=== PATIENT | male | born 1950 | race Caucasian/White ===

== ENCOUNTER 2016-05-31 09:19 | Outpatient (CLI) | payer OTHER | END 2016-05-31 09:20 | disposition home or self-care (01) | DX: C61 Malignant neoplasm of prostate (principal) ==

== ENCOUNTER 2016-08-02 16:32 | Outpatient (CLI) | payer OTHER | END 2016-08-02 16:33 | disposition home or self-care (01) | DX: Z01.810 Encounter for preprocedural cardiovascular examination (principal) ==

== ENCOUNTER 2016-08-04 06:56 | Day surgery (SDC) | payer OTHER ==
[2016-08-04] MEDS ORDERED: LACTATED RINGERS 1,000 ML IV ONE ×2 (06:59→10:37)
[2016-08-04] MEDS ORDERED: BUPIVACAINE 0.5% PF 30 ML VIAL SUBQ ONE (09:01)
[2016-08-04] MEDS ORDERED: LIDOCAINE 1%-EPI 1:100000 30 ML MDV SUBQ ONE ×2 (09:01)
[2016-08-04] MEDS ORDERED: ONDANSETRON 4 MG/2 ML VIAL IVP ONE (09:07)
[2016-08-04] MEDS ORDERED: METOCLOPRAMIDE 10 MG/2 ML VIAL IVP ONE (09:07)
[2016-08-04] MEDS ORDERED: ePHEDrine 50 MG/ML VIAL IVP ONE (09:07)
[2016-08-04] MEDS ORDERED: ceFAZolin 1 GM VIAL IV ONE (09:07)
[2016-08-04] MEDS ORDERED: PROPOFOL 200 MG/20 ML VIAL IVP ONE (09:07)
[2016-08-04] MEDS ORDERED: LIDOCAINE-MPF 2% 5 ML VIAL IM ONE (09:07)
[2016-08-04] MEDS ORDERED: MIDAZOLAM 2 MG/2 ML VIAL IVP ONE (09:07)
[2016-08-04] MEDS ORDERED: ACETAMINOPHEN 1,000 MG/100 ML VIAL IV ONE (09:07)
[2016-08-04] MEDS ORDERED: KETOROLAC 15 MG/ML VIAL ONE (11:15)
== END 2016-08-04 06:57 | disposition home or self-care (01) ==
PROC: 0YU60JZ Supplement Left Inguinal Region with Synthetic Substitute, Open Approach (ICD-10-PCS; principal; 2016-08-04 08:00)
DX: K40.90 Unilateral inguinal hernia, without obstruction or gangrene, not specified as recurrent (principal); E03.9 Hypothyroidism, unspecified; E78.5 Hyperlipidemia, unspecified; I10 Essential (primary) hypertension; E66.9 Obesity, unspecified; Z87.891 Personal history of nicotine dependence; Z80.42 Family history of malignant neoplasm of prostate; Z80.8 Family history of malignant neoplasm of other organs or systems; Z85.46 Personal history of malignant neoplasm of prostate; Z80.9 Family history of malignant neoplasm, unspecified; Z80.6 Family history of leukemia; G47.33 Obstructive sleep apnea (adult) (pediatric); Z68.32 Body mass index [BMI] 32.0-32.9, adult
CPT/HCPCS: 49505; C1781; J0131; J7120

== ENCOUNTER 2016-11-09 09:13 | Outpatient (CLI) | payer OTHER ==
[2016-11-09 11:24] LABS: BASOPHILS % (AUTO) 0.6 %; EOSINOPHILS # (AUTO) 0.3 10^3/uL (0.0-0.7); EOSINOPHILS % (AUTO) 4.9 %; HCT - HEMATOCRIT 40.1 % (42.0-52.0); HGB - HEMOGLOBIN 13.9 g/dL (14.0-18.0); MEAN CORPUSCULAR HEMOGLOBIN 30.4 pg (27.0-31.0); MEAN CORPUSCULAR HGB CONC 34.6 g/dL (32.0-36.0); MEAN CORPUSCULAR VOLUME 87.8 fL (80.0-94.0); MEAN PLATELET VOLUME 7.7 fL (7.4-11.4); MONOCYTES # (AUTO) 0.4 10^3/uL (0.0-1.0); MONOCYTES % (AUTO) 6.3 %; NEUTROPHILS # (AUTO) 4.3 10^3/uL (1.5-6.6); NEUTROPHILS % (AUTO) 60.2 %; RED BLOOD COUNT 4.57 10^6/uL (4.70-6.10); RED CELL DISTRIBUTION WIDTH 12.9 % (12.0-15.0); UNCORRECTED WHITE BLOOD COUNT 7.1 x10^3/uL; WHITE BLOOD COUNT 7.1 x10^3/uL (4.8-10.8)
[2016-11-09 11:41] LABS: ALBUMIN/GLOBULIN RATIO 1.5 (1.0-2.2); BILIRUBIN,TOTAL 0.6 mg/dL (0.2-1.0); BUN - BLOOD UREA NITROGEN 16 mg/dL (6-20); CALCIUM 9.8 mg/dL (8.5-10.3); CARBON DIOXIDE - CO2 26 mmol/L (21-32); CHLORIDE 107 mmol/L (101-111); CHOLESTEROL 125 mg/dL; CREATININE 1.4 mg/dL (0.6-1.2); GFR - MDRD 51 (>89); GLUCOSE 107 mg/dL (70-100); HDL CHOLESTEROL 25 mg/dL; LDL/HDL RATIO 1.8 (<3.6); POTASSIUM 3.4 mmol/L (3.5-5.0); SODIUM 140 mmol/L (135-145); TOTAL PROTEIN 6.8 g/dL (6.7-8.2); TRIGLYCERIDES 278 mg/dL; VLDL CHOLESTEROL 56 mg/dL
[2016-11-16 09:32] LABS: TEST RESULT REPORT (())
== END 2016-11-09 09:14 | disposition home or self-care (01) ==
LOC: LAB.R 09:13
PROVIDERS: ATTEND Internal Medicine
DX: I10 Essential (primary) hypertension (principal); E03.9 Hypothyroidism, unspecified; E78.2 Mixed hyperlipidemia; Z86.19 Personal history of other infectious and parasitic diseases; Z79.899 Other long term (current) drug therapy
CPT/HCPCS: 80053; 80061; 81599; 84443; 85025; 87522

== ENCOUNTER 2017-02-02 15:49 | Emergency (ER) | payer OTHER ==
[2017-02-02 16:22] LABS: BILIRUBIN,URINE NEGATIVE (NEGATIVE)
[2017-02-02 16:23] LABS: UA CHARGE (STRIP ONLY) YES; UR CULTURE IF IND NOT INDICATED
[2017-02-02] MEDS ORDERED: SODIUM CHLORIDE 0.9% 1,000 ML IV ONE (18:31)
[2017-02-02] MEDS ORDERED: ONDANSETRON 4 MG/2 ML VIAL IVP STA (18:31)
[2017-02-02] MEDS ORDERED: MORPHINE 10 MG/ML VIAL IVP STA (18:31)
--- NOTE | 2017-02-02 18:33 | ED Physician Documentation ---
PD HPI ABD PAIN - Stated complaint Stated Complaint: MALE - Chief complaint Chief Complaint: Abd Pain - History obtained from History obtained from: Patient - History of Present Illness Timing - onset: Other (This is a 66-year-old gentleman with history of renal colic, never required intervention with 24 hours of increasing pain radiating from the right flank down to the right lower quadrant with one episode of vomiting. No hematuria.) Review of Systems Ten Systems: 10 systems reviewed and negative Constitutional: denies: Fever, Chills GI: denies: Constipation, Diarrhea : denies: Dysuria, Incontinent, Hematuria, Discharge PD PAST MEDICAL HISTORY - Past Medical History Past Medical History: Yes Cardiovascular: Hypertension Respiratory: Sleep apnea, CPAP use Endocrine/Autoimmune: HyPOthyroidism GI: GERD, Hiatal hernia, Hepatitis : Benign prostate hypertrophy, Kidney stones, Other HEENT: Chronic hearing loss Psych: None Musculoskeletal: Osteoarthritis, Chronic back pain Derm: None - Past Surgical History Past Surgical History: Yes General: Colonoscopy HEENT: Tonsil/Adenoidectomy - Present Medications Home Medications: Ambulatory Orders Medication Instructions Recorded Confirmed Atorvastatin Calcium [Lipitor] 10 mg ORAL DAILY 12/20/12 02/02/17 Levothyroxine Sodium [Synthroid] 88 mcg ORAL DAILY 12/20/12 02/02/17 Eplerenone 25 mg PO DAILY 11/29/15 02/02/17 Labetalol [Trandate] 200 mg ORAL BID 11/29/15 02/02/17 Tamsulosin [Flomax] 0.4 mg PO DAILY 12/07/15 02/02/17 Calcium Carbonate [Tums (Calcium 1 - 2 tab.chew PO DAILY 08/02/16 02/02/17 Carbonate 500mg)] Oxycodone HCl/Acetaminophen 1 - 2 tab PO Q4H PRN #15 tablet 02/02/17 [Percocet 5-325 mg Tablet] - Allergies Allergies/Adverse Reactions: Allergies Allergy/AdvReac Type Severity Reaction Status Date / Time No Known Drug Allergies Allergy Verified 12/20/12 11:52 - Social History Does the pt smoke?: Yes Smoking Status: Former smoker Does the pt drink ETOH?: Yes Does the pt have substance abuse?: No - Immunizations Immunizations are current?: Yes - POLST Patient has POLST: No PD ED PE NORMAL - Vitals Vital signs reviewed: Yes - General General: Alert and oriented X 3, Other (uncomfortable) - HEENT HEENT: PERRL, EOMI - Cardiac Cardiac: RRR, No murmur - Respiratory Respiratory: No respiratory distress, Clear bilaterally - Abdomen Abdomen: Normal bowel sounds, Soft, Non tender - Back Back: No CVA TTP - Derm Derm: Normal color, Warm and dry - Extremities Extremities: No deformity, No tenderness to palpate - Neuro Neuro: Alert and oriented X 3, Normal speech - Psych Psych: Normal mood, Normal affect Results - Vitals Vitals: Vital Signs - 24 hr 02/02/17 02/02/17 02/02/17 16:09 19:05 19:59 Temperature 36.5 C 36.5 C Heart Rate 56 L 61 76 Respiratory 18 14 16 Rate Blood Pressure 185/95 H 215/97 H 193/91 H O2 Saturation 100 99 97 Oxygen O2 Source Room air - Labs Labs: Laboratory Tests 02/02/17 02/02/17 02/02/17 16:00 18:43 18:43 WBC 15.9 H RBC 4.97 Hgb 15.1 Hct 43.2 MCV 87.0 MCH 30.5 MCHC 35.0 RDW 13.1 Plt Count 178 MPV 7.4 Neut # 14.0 H Lymph # 1.2 L [place] # 0.6 Eos # 0.0 Baso # 0.1 Absolute Nucleated RBC 0.01 Nucleated RBCs 0.0 Sodium 137 Potassium 3.9 Chloride 99 L Carbon Dioxide 28 Anion Gap 10.0 BUN 15 Creatinine 1.6 H Estimated GFR (MDRD) 44 L Glucose 147 H Calcium 10.5 H Total Bilirubin 1.2 H AST 46 H ALT 49 Alkaline Phosphatase 57 Total Protein 7.9 Albumin 4.7 Globulin 3.2 Albumin/Globulin Ratio 1.5 Lipase 22 Urine Color YELLOW Urine Clarity CLEAR Urine pH 8.0 H Ur Specific [place] 1.015 Urine Protein NEGATIVE Urine Glucose (UA) NEGATIVE Urine Ketones NEGATIVE Urine Occult Blood TRACE-INTA Urine Nitrite NEGATIVE Urine Bilirubin NEGATIVE Urine Urobilinogen 0.2 (NORMAL) Ur Leukocyte Esterase NEGATIVE Ur Microscopic Review NOT INDICATED Urine Culture Comments NOT INDICATED - Rads (name of study) CT KUB Radiology: EMP read contemporaneously (Obstructing 3.8 mm distal right ureteral stone, nonobstructing left renal stone and renal calculi without evidence of Appendicitis, diverticulitis etc.) PD MEDICAL DECISION MAKING - ED course ED course: 66-year-old gentleman presents with apparent renal colic, however there is no hematuria so CT imaging was obtained. He does have a right UVJ stone with hydronephrosis but was pain-free after single dose of morphine. Labs reviewed, his creatinine is usually 1.4-1.5, so today's value is not significantly increased, and he has had elevated liver enzymes in the past from a history of hepatitis C. Departure - Departure Disposition: 01 Home, Self Care Clinical Impression: Renal colic Condition: Good Record reviewed to determine appropriate education?: Yes Instructions: ED Stone Renal W Colic Prescriptions: Oxycodone HCl/Acetaminophen [Percocet 5-325 mg Tablet] 1 - 2 tab PO Q4H PRN #15 tablet PRN Reason: Pain Comments: Follow-up with Dr. bernardo on Sunday to recheck your blood pressure which was high today, and also discuss her abnormal labs, but most of these seem chronic. He can also refer you to a urologist if your symptoms are persistent. Continue your Flomax. Your blood pressure was elevated today on check into the emergency department. This does not mean that you have hypertension, it is a common phenomenon to come to the emergency department and have elevated blood pressure. I recommend that she see your primary care physician within the week to have it rechecked when you are feeling better. Do not drink or drive while taking narcotic pain medication. Note that many narcotic pain relievers also contain Tylenol/acetaminophen. Please ensure that your total dose of acetaminophen from all sources does not exceed 3 g (3000 mg) per day. You may get constipated while on this medication. Take a stool softener such as Colace twice a day while you are on it. Also add an vlbq-hcq-lrjceey laxative such as senna or MiraLAX on any day that you do not have a bowel movement. If you received a narcotic pain medication or sedative while in the emergency department, do not drive for the next 24 hours. Discharge Date/Time: 02/02/17 20:15
[2017-02-02 19:01] LABS: BASOPHILS # (AUTO) 0.1 10^3/uL (0.0-0.1); BASOPHILS % (AUTO) 0.5 %; EOSINOPHILS % (AUTO) 0.1 %; HCT - HEMATOCRIT 43.2 % (42.0-52.0); HGB - HEMOGLOBIN 15.1 g/dL (14.0-18.0); LYMPHOCYTES # (AUTO) 1.2 10^3/uL (1.5-3.5); LYMPHOCYTES % (AUTO) 7.5 %; MEAN CORPUSCULAR HEMOGLOBIN 30.5 pg (27.0-31.0); MEAN PLATELET VOLUME 7.4 fL (7.4-11.4); MONOCYTES # (AUTO) 0.6 10^3/uL (0.0-1.0); MONOCYTES % (AUTO) 3.8 %; NEUTROPHILS % (AUTO) 88.1 %; RED BLOOD COUNT 4.97 10^6/uL (4.70-6.10); RED CELL DISTRIBUTION WIDTH 13.1 % (12.0-15.0); UNCORRECTED WHITE BLOOD COUNT 15.9 x10^3/uL; WHITE BLOOD COUNT 15.9 x10^3/uL (4.8-10.8)
[2017-02-02] MEDS ORDERED: MORPHINE 10 MG/ML VIAL ONE (19:01)
[2017-02-02] MEDS ORDERED: ONDANSETRON 4 MG/2 ML VIAL ONE (19:01)
[2017-02-02 19:02] LABS: ALBUMIN/GLOBULIN RATIO 1.5 (1.0-2.2); BILIRUBIN,TOTAL 1.2 mg/dL (0.2-1.0); CALCIUM 10.5 mg/dL (8.5-10.3); CREATININE 1.6 mg/dL (0.6-1.2); POTASSIUM 3.9 mmol/L (3.5-5.0); TOTAL PROTEIN 7.9 g/dL (6.7-8.2)
[2017-02-02 20:00] VITALS: BP 193/91
--- NOTE | 2017-02-02 20:23 | CT Preliminary Report ---
Exam: CT Abdomen/Pelvis W/O IMPRESSION: 1. Obstructing 3.8 mm distal right ureteral stone results in moderate right hydroureter, hydronephros is and perinephric stranding. 2. 3 mm nonobstructing mid left renal stone. 3. Bilateral nonobstructing renal calculi. 4. Normal appendix. Diverticulosis. No inflammation. [facility] SITE ID: [id number]
--- NOTE | 2017-02-02 20:38 | CT Report ---
EXAM: CT ABDOMEN AND PELVIS (CT KUB) EXAM DATE: 02/02/2017 07:35 PM. CLINICAL HISTORY: Right flank pain. COMPARISONS: None. TECHNIQUE: Routine axial helical CT imaging was performed through the abdomen and pelvis without IV c ontrast. Reconstructions: Coronal and sagittal. In accordance with CT protocol optimization, one or more of the following dose reduction techniques w ere utilized for this exam: automated exposure control, adjustment of mA and/or KV based on patient s ize, or use of iterative reconstructive technique. FINDINGS: Lung Bases: Mild cardiac enlargement. Small hiatal hernia. Coronary artery calcifications are noted. No pleural or pericardial effusion is noted. Right Kidney/Ureter: 3.8 mm distal right ureteral stone results in moderate hydroureter and hydroneph rosis. Moderate perinephric fat stranding. No contour deforming renal mass noted. Multiple nonobstru cting right-sided renal stones with the largest measuring 7 mm in the right upper kidney. Left Kidney/Ureter: Multiple small punctate nonobstructing inferior left renal stones. No left renal mass or hydronephrosis is noted. There is a 3 mm nonobstructing mid left renal stone on image 3,91. Other Solid Organs: Noncontrast images of the solid organs are grossly unremarkable. Gallbladder/Bile Ducts: Unremarkable. Peritoneal Cavity: No free fluid, free air or lisa adenopathy. Bowel is grossly unremarkable. Scatte red sigmoid diverticula are noted without inflammation. Normal appendix. Pelvic Organs: Prostate gland is mildly enlarged and contains multiple radiation therapy beads. Semin al vesicles are moderately enlarged. No bladder stones or bladder thickening or mass. No pelvic mass or adenopathy is noted. Vasculature: Mild patchy atheromatous plaques are present throughout the abdominal aorta. No aneurysm al dilation is noted. IVC is normal. Other: Fat-containing left inguinal hernia noted. No incarcerated bowel. IMPRESSION: 1. Obstructing 3.8 mm distal right ureteral stone results in moderate right hydroureter, hydronephros is, and perinephric stranding. 2. 3 mm nonobstructing mid left renal stone. 3. Bilateral nonobstructing renal calculi. 4. Normal appendix. Diverticulosis. No inflammation. [facility] Referring Provider Line: [phone] SITE ID: [id number]
== END 2017-02-02 20:15 | disposition home or self-care (01) ==
LOC: ED 15:49
DX: N13.2 Hydronephrosis with renal and ureteral calculous obstruction (principal); I10 Essential (primary) hypertension; Z87.891 Personal history of nicotine dependence
CPT/HCPCS: 36415; 74176; 80053; 81001; 81003; 83690; 85025; 87086; 96374; 96375; 99283; 99284

== ENCOUNTER 2017-02-04 18:38 | Emergency (ER) | payer OTHER ==
--- NOTE | 2017-02-04 19:17 | ED Physician Documentation ---
PD HPI ABD PAIN - Stated complaint Stated Complaint: STOMACH PX - Chief complaint Chief Complaint: Abd Pain - History obtained from History obtained from: Patient, Family - History of Present Illness Timing - onset: Other (66-year-old gentleman with history of renal colic and hepatitis C and renal insufficiency was seen by me 2 days ago for renal colic on the right. He has persistent pain, but now also has rectal pain and new abdominal pain and has not had a bowel movement since prior to that visit. This is despite taking stool softeners and magnesium citrate.) Review of Systems Constitutional: denies: Fever, Chills Cardiac: denies: Chest pain / pressure, Palpitations Respiratory: denies: Dyspnea, Cough GI: reports: Abdominal Pain, Constipation. denies: Diarrhea, Hematemesis, Bloody / black stool PD PAST MEDICAL HISTORY - Past Medical History Cardiovascular: Hypertension Respiratory: Sleep apnea, CPAP use Endocrine/Autoimmune: HyPOthyroidism GI: GERD, Hiatal hernia, Hepatitis : Benign prostate hypertrophy, Kidney stones, Other HEENT: Chronic hearing loss Psych: None Musculoskeletal: Osteoarthritis, Chronic back pain Derm: None - Past Surgical History Past Surgical History: Yes General: Colonoscopy HEENT: Tonsil/Adenoidectomy - Present Medications Home Medications: Ambulatory Orders Medication Instructions Recorded Confirmed Atorvastatin Calcium [Lipitor] 10 mg ORAL DAILY 12/20/12 02/04/17 Levothyroxine Sodium [Synthroid] 88 mcg ORAL DAILY 12/20/12 02/04/17 Eplerenone 25 mg PO DAILY 11/29/15 02/04/17 Labetalol [Trandate] 200 mg ORAL BID 11/29/15 02/04/17 Tamsulosin [Flomax] 0.4 mg PO DAILY 12/07/15 02/04/17 Calcium Carbonate [Tums (Calcium 1 - 2 tab.chew PO DAILY 08/02/16 02/04/17 Carbonate 500mg)] Oxycodone HCl/Acetaminophen 1 - 2 tab PO Q4H PRN #15 tablet 02/02/17 02/04/17 [Percocet 5-325 mg Tablet] - Allergies Allergies/Adverse Reactions: Allergies Allergy/AdvReac Type Severity Reaction Status Date / Time No Known Drug Allergies Allergy Verified 02/04/17 18:48 - Social History Does the pt smoke?: Yes Smoking Status: Former smoker Does the pt drink ETOH?: Yes Does the pt have substance abuse?: No - Immunizations Immunizations are current?: Yes - POLST Patient has POLST: No PD ED PE NORMAL - Vitals Vital signs reviewed: Yes - General General: Alert and oriented X 3, Other (Uncomfortable) - HEENT HEENT: PERRL, EOMI - Neck Neck: Supple, no meningeal sign, No bony TTP - Cardiac Cardiac: RRR, No murmur - Respiratory Respiratory: No respiratory distress, Clear bilaterally - Abdomen Abdomen: Other (Normal bowel tones, mild right-sided abdominal tenderness. No surgical signs.) - Male Male : Other (No fecal impaction or significant stool in the vault) - Back Back: No CVA TTP, No spinal TTP - Derm Derm: Normal color, Warm and dry - Extremities Extremities: No deformity, No tenderness to palpate, No edema, No calf tenderness / cord - Neuro Neuro: Alert and oriented X 3, Normal speech - Psych Psych: Normal mood, Normal affect Results - Vitals Vitals: Vital Signs - 24 hr 02/04/17 18:45 Temperature 37.3 C Heart Rate 85 Respiratory 16 Rate Blood Pressure 142/92 H O2 Saturation 97 Oxygen O2 Source Room air - Labs Labs: Laboratory Tests 02/04/17 02/04/17 02/04/17 19:40 19:40 21:20 WBC 16.7 H RBC 4.85 Hgb 14.7 Hct 42.2 MCV 86.9 MCH 30.3 MCHC 34.9 RDW 13.1 Plt Count 177 MPV 7.8 Neut # 14.8 H Lymph # 0.8 L [place] # 1.1 H Eos # 0.0 Baso # 0.0 Absolute Nucleated RBC 0.00 Nucleated RBCs 0.0 Sodium 136 Potassium 3.9 Chloride 98 L Carbon Dioxide 31 Anion Gap 7.0 BUN 23 H Creatinine 1.6 H Estimated GFR (MDRD) 44 L Glucose 154 H Calcium 10.6 H Total Bilirubin 1.2 H AST 24 ALT 33 Alkaline Phosphatase 47 Total Protein 7.3 Albumin 4.1 Globulin 3.2 Albumin/Globulin Ratio 1.3 Lipase 14 L Urine Color YELLOW Urine Clarity CLEAR Urine pH 6.0 Ur Specific [place] 1.015 Urine Protein NEGATIVE Urine Glucose (UA) NEGATIVE Urine Ketones NEGATIVE Urine Occult Blood LARGE H Urine Nitrite NEGATIVE Urine Bilirubin NEGATIVE Urine Urobilinogen 0.2 (NORMAL) Ur Leukocyte Esterase NEGATIVE Urine RBC 11-25 H Urine WBC 0-3 Ur Squamous Epith Cells RARE Squamous Urine Bacteria Rare Ur Microscopic Review INDICATED Urine Culture Comments NOT INDICATED - Rads (name of study) 1v abd/KUB Radiology: EMP read contemporaneously (Redemonstration of 4 mm right distal ureteral calculus and there is a 5 mm right infrarenal calculus.) PD MEDICAL DECISION MAKING - ED course ED course: 66-year-old gentleman with known renal colic on the right presents with constipation and continued abdominal pain. On examination he had no fecal impaction. A KUB was done demonstrating no movement of the kidney stone, and I do not see much constipation on there either. He was given laxatives here and had a good bowel movement without significant change in his pain, so I suspect the bulk of his pain is actually from the kidney stone itself. He has a urologist, Dr. Macias in [place], I advised that he follow-up with him tomorrow. He was given a copy of his CAT scan from the other day on a CD to aid in follow-up. Departure - Departure Disposition: 01 Home, Self Care Clinical Impression: Renal colic Condition: Good Record reviewed to determine appropriate education?: Yes Instructions: ED Stone Renal W Colic Comments: Continue on the Percocet for now, but take laxatives every day if not having a bowel movement. Return if worse. Follow-up with Dr. Macias with a copy of your CAT scan on CD tomorrow. Your blood pressure was elevated today on check into the emergency department. This does not mean that you have hypertension, it is a common phenomenon to come to the emergency department and have elevated blood pressure. I recommend that she see your primary care physician within the week to have it rechecked when you are feeling better.
[2017-02-04] MEDS ORDERED: SODIUM CHLORIDE FLUSH 0.9% 10 ML SYRINGE IVP ONE (19:38)
[2017-02-04] MEDS ORDERED: SODIUM CHLORIDE 0.9% 1,000 ML IV ONE ×2 (20:09→21:36)
[2017-02-04] MEDS ORDERED: BISACODYL 5 MG TABLET PO STA (20:09)
[2017-02-04] MEDS ORDERED: MAGNESIUM CITRATE 296 ML BOTTLE PO STA (20:09)
[2017-02-04] MEDS ORDERED: LORazepam 2 MG/ML SYRINGE IVP STA (20:09)
[2017-02-04 20:15] LABS: BASOPHILS % (AUTO) 0.1 %; EOSINOPHILS % (AUTO) 0.1 %; HCT - HEMATOCRIT 42.2 % (42.0-52.0); HGB - HEMOGLOBIN 14.7 g/dL (14.0-18.0); LYMPHOCYTES # (AUTO) 0.8 10^3/uL (1.5-3.5); LYMPHOCYTES % (AUTO) 4.8 %; MEAN CORPUSCULAR HEMOGLOBIN 30.3 pg (27.0-31.0); MEAN CORPUSCULAR HGB CONC 34.9 g/dL (32.0-36.0); MEAN CORPUSCULAR VOLUME 86.9 fL (80.0-94.0); MEAN PLATELET VOLUME 7.8 fL (7.4-11.4); MONOCYTES # (AUTO) 1.1 10^3/uL (0.0-1.0); MONOCYTES % (AUTO) 6.6 %; NEUTROPHILS # (AUTO) 14.8 10^3/uL (1.5-6.6); NEUTROPHILS % (AUTO) 88.4 %; RED BLOOD COUNT 4.85 10^6/uL (4.70-6.10); RED CELL DISTRIBUTION WIDTH 13.1 % (12.0-15.0); UNCORRECTED WHITE BLOOD COUNT 16.7 x10^3/uL; WHITE BLOOD COUNT 16.7 x10^3/uL (4.8-10.8)
[2017-02-04] MEDS ORDERED: BISACODYL 5 MG TABLET PO ONE (20:18)
[2017-02-04] MEDS ORDERED: LORazepam 2 MG/ML SYRINGE ONE (20:19)
[2017-02-04] MEDS ORDERED: MAGNESIUM CITRATE 296 ML BOTTLE ONE (20:19)
[2017-02-04 20:32] LABS: ALBUMIN/GLOBULIN RATIO 1.3 (1.0-2.2); BILIRUBIN,TOTAL 1.2 mg/dL (0.2-1.0); CALCIUM 10.6 mg/dL (8.5-10.3); CREATININE 1.6 mg/dL (0.6-1.2); POTASSIUM 3.9 mmol/L (3.5-5.0); TOTAL PROTEIN 7.3 g/dL (6.7-8.2)
--- NOTE | 2017-02-04 21:06 | XRAY Preliminary Report ---
Exam: XR Abdomen 1 View IMPRESSION: 1. Redemonstration of 4 mm right distal ureteral calculus. 2. 5 mm right intrarenal calculus. Other tiny intrarenal calculi demonstrated on CT are not well seen . [facility] SITE ID: [id number]
--- NOTE | 2017-02-04 21:08 | XRAY Report ---
EXAM: ABDOMEN RADIOGRAPHY EXAM DATE: 02/04/2017 08:39 PM. CLINICAL HISTORY: Constipation. Kidney stone. COMPARISON: CT KUB 02/02/2017. TECHNIQUE: 1 view. FINDINGS: Lung Bases: Clear as visualized. Bowel Gas Pattern: Within normal limits. No abnormal stool volume or dilated loops. Other: Redemonstration of 4 mm right distal ureteral calculus, and 5 mm intrarenal calculus in the mi dportion of the right kidney. Brachytherapy seeds within the prostate gland. IMPRESSION: 1. Redemonstration of 4 mm right distal ureteral calculus. 2. 5 mm right intrarenal calculus. Other tiny intrarenal calculi demonstrated on CT are not well seen . [facility] Referring Provider Line: [phone] SITE ID: [id number]
[2017-02-04] MEDS ORDERED: KETOROLAC 60 MG/2 ML VIAL IVP STA (21:13)
[2017-02-04] MEDS ORDERED: KETOROLAC 30 MG/ML VIAL ONE (21:30)
[2017-02-04 21:39] LABS: BILIRUBIN,URINE NEGATIVE (NEGATIVE)
[2017-02-04 21:41] LABS: UA w/ MICROSCOPIC CHARGE YES
[2017-02-04 21:47] LABS: UR CULTURE IF IND NOT INDICATED; WBC,URINE 0-3 /HPF (0-3)
[2017-02-04 22:12] VITALS: BP 159/96
== END 2017-02-04 22:21 | disposition home or self-care (01) ==
LOC: ED 18:38
DX: N20.2 Calculus of kidney with calculus of ureter (principal); Z87.442 Personal history of urinary calculi; K59.00 Constipation, unspecified; Z86.19 Personal history of other infectious and parasitic diseases; I10 Essential (primary) hypertension; G47.30 Sleep apnea, unspecified; E03.9 Hypothyroidism, unspecified; N40.0 Benign prostatic hyperplasia without lower urinary tract symptoms; K21.9 Gastro-esophageal reflux disease without esophagitis; M19.90 Unspecified osteoarthritis, unspecified site; Z87.891 Personal history of nicotine dependence
CPT/HCPCS: 36415; 74000; 80053; 81001; 83690; 85025; 96374; 96375; 99283; 99284; A9270; J2060; 81003; 87086

== ENCOUNTER 2017-03-05 08:00 | Outpatient (CLI) | payer OTHER ==
[2017-03-07 16:32] LABS: TEST RESULT REPORT
== END 2017-03-05 08:01 | disposition home or self-care (01) ==
LOC: LAB.R 08:00
PROVIDERS: ATTEND Internal Medicine
DX: N48.9 Disorder of penis, unspecified (principal)
CPT/HCPCS: 81599; 86592; 86695; 86696

== ENCOUNTER 2017-05-01 14:49 | Outpatient (CLI) | payer OTHER ==
--- NOTE | 2017-05-01 19:51 | MRI Report ---
EXAM: LEFT KNEE MRI WITHOUT CONTRAST EXAM DATE: 05/01/2017 03:27 PM. CLINICAL HISTORY: Internal derangement of the left knee. Popping and clicking for one and a half selma hs. COMPARISON: None. TECHNIQUE: Multiplanar, multisequence T1-weighted and fluid-sensitive sequences of the knee without c ontrast. Other: None. FINDINGS: Bones: Marrow edema is in the medial femoral condyle in the periphery of the medial tibial plateau. N o fractures. Articular Cartilage: The central patellar cartilage demonstrates mild surface fissuring. The trochlea r cartilage is intact. Lateral compartment articular cartilage is intact. There is a focal area of fu ll-thickness cartilage loss from the inferior medial femoral condyle that measures 1.6 x 1.6 cm. Medial Meniscus: The posterior root of the medial meniscus demonstrates a high-grade radial tear (ser ies 601, images 18 through 22; series 801, image 23). Lateral Meniscus: The lateral meniscus is intact. Cruciate Ligaments: The anterior and posterior cruciate ligaments are intact. Collateral Ligaments: The medial collateral and lateral collateral ligamentous structures are intact. Tendons: The quadriceps, patellar, semimembranosus, and popliteus tendons are unremarkable. Musculature: No edema or fatty atrophy. Other: A moderate knee effusion is present.. No popliteal cyst. No loose bodies. The medial and late ral retinacula are intact. Prepatellar subcutaneous edema is seen. IMPRESSION: 1. Focal area of full-thickness cartilage loss from the inferior medial femoral condyle. 2. High-grade radial tear of the posterior root of the medial meniscus. 3. Moderate knee effusion. [facility] MUSCULOSKELETAL RADIOLOGY SECTION Referring Provider Line: [phone] SITE ID: [id number]
== END 2017-05-01 14:50 | disposition home or self-care (01) ==
LOC: DI 14:49
PROVIDERS: ATTEND Internal Medicine
DX: M23.92 Unspecified internal derangement of left knee (principal); S83.242A Other tear of medial meniscus, current injury, left knee, initial encounter; M25.462 Effusion, left knee

== ENCOUNTER 2017-10-24 08:00 | Outpatient (CLI) | payer OTHER ==
[2017-10-24 14:12] LABS: BASOPHILS # (AUTO) 0.1 10^3/uL (0.0-0.1); BASOPHILS % (AUTO) 0.7 %; EOSINOPHILS # (AUTO) 0.2 10^3/uL (0.0-0.7); EOSINOPHILS % (AUTO) 3.2 %; HGB - HEMOGLOBIN 15.2 g/dL (14.0-18.0); LYMPHOCYTES # (AUTO) 2.3 10^3/uL (1.5-3.5); LYMPHOCYTES % (AUTO) 32.8 %; MEAN CORPUSCULAR HEMOGLOBIN 30.3 pg (27.0-31.0); MEAN CORPUSCULAR VOLUME 89.1 fL (80.0-94.0); MEAN PLATELET VOLUME 8.1 fL (7.4-11.4); MONOCYTES # (AUTO) 0.4 10^3/uL (0.0-1.0); MONOCYTES % (AUTO) 6.3 %; PLT - PLATELET COUNT 198 10^3/uL (130-450); RED BLOOD COUNT 5.02 10^6/uL (4.70-6.10); RED CELL DISTRIBUTION WIDTH 13.5 % (12.0-15.0)
[2017-10-24 14:34] LABS: ALBUMIN/GLOBULIN RATIO 1.3 (1.0-2.2); ALKALINE PHOSPHATASE 46 IU/L (42-121); ALT ALANINE AMINOTRANSFERASE 65 IU/L (10-60); AST ASPARTATE AMINOTRANSFERASE 39 IU/L (10-42); BILIRUBIN,TOTAL 0.9 mg/dL (0.2-1.0); BUN - BLOOD UREA NITROGEN 13 mg/dL (6-20); CALCIUM 9.7 mg/dL (8.5-10.3); CARBON DIOXIDE - CO2 27 mmol/L (21-32); CHLORIDE 105 mmol/L (101-111); CHOL/HDL RATIO 4.7 (<5.0); CHOLESTEROL 136 mg/dL; CREATININE 1.2 mg/dL (0.6-1.2); GFR - MDRD 61 (>89); GLUCOSE 111 mg/dL (70-100); HDL CHOLESTEROL 29 mg/dL; LDL CHOLESTEROL,CALCULATED 71 mg/dL; LDL/HDL RATIO 2.4 (<3.6); SODIUM 137 mmol/L (135-145); TOTAL PROTEIN 7.1 g/dL (6.7-8.2); VLDL CHOLESTEROL 36 mg/dL
== END 2017-10-24 08:01 | disposition home or self-care (01) ==
LOC: LAB.R 08:00
PROVIDERS: ATTEND Internal Medicine
DX: E03.9 Hypothyroidism, unspecified (principal); K21.9 Gastro-esophageal reflux disease without esophagitis; I10 Essential (primary) hypertension; E78.5 Hyperlipidemia, unspecified
CPT/HCPCS: 80053; 80061; 83721; 84443; 85025

== ENCOUNTER 2017-12-04 08:00 | Outpatient (CLI) | payer OTHER ==
[2017-12-04 14:14] LABS: HEMOGLOBIN A1C 0.63 g/dL; HEMOGLOBIN A1C % 5.5 % (4.6-6.2)
== END 2017-12-04 08:01 | disposition home or self-care (01) ==
LOC: LAB.R 08:00
PROVIDERS: ATTEND Internal Medicine
DX: R73.9 Hyperglycemia, unspecified (principal)
CPT/HCPCS: 82947; 83036

== ENCOUNTER 2017-12-15 10:44 | Outpatient (CLI) | payer MEDICARE | END 2017-12-15 10:45 | disposition home or self-care (01) | LOC: LAB 10:44 | PROVIDERS: ATTEND Urology | DX: Z85.46 Personal history of malignant neoplasm of prostate (principal) | CPT/HCPCS: 36415; 84153 ==

== ENCOUNTER 2018-11-19 11:20 | Outpatient (CLI) | payer MEDICARE ==
--- NOTE | 2018-11-19 14:16 | XRAY Report ---
Reason: RENAL CALCULUS Procedure Date: 11/19/2018 Accession Number: [id number] / [id number] Procedure: XR - Abdomen 1 View X-Ray CPT Code: 81818 FULL RESULT: EXAM: ABDOMEN RADIOGRAPHY EXAM DATE: 11/19/2018 11:55 AM. CLINICAL HISTORY: Renal calculus. COMPARISON: ABDOMEN 1 VIEW 02/04/2017 8:10 PM. TECHNIQUE: 1 view. FINDINGS: Bowel Gas Pattern: Within normal limits. No dilated loops. Other: A sub-3 mm calcific density seen in the region of the expected right renal lower pole. Previously seen calcific density projecting over the right renal mid pole is not seen. Fiducial markers are seen in the prostate. IMPRESSION: Potential calculus in the lower pole region of the right kidney. [facility]
== END 2018-11-19 11:21 | disposition home or self-care (01) ==
LOC: DI 11:20
PROVIDERS: ATTEND Urology
DX: N20.0 Calculus of kidney (principal); Z85.46 Personal history of malignant neoplasm of prostate
CPT/HCPCS: 36415; 74018; 84153

== ENCOUNTER 2018-12-30 09:33 | Outpatient (CLI) | payer MEDICARE ==
[2018-12-30 09:48] LABS: BASOPHILS % (AUTO) 0.5 %; EOSINOPHILS # (AUTO) 0.2 10^3/uL (0.0-0.7); EOSINOPHILS % (AUTO) 2.8 %; HGB - HEMOGLOBIN 13.9 g/dL (14.0-18.0); LYMPHOCYTES % (AUTO) 31.3 %; MEAN CORPUSCULAR HEMOGLOBIN 29.1 pg (27.0-31.0); MEAN CORPUSCULAR HGB CONC 33.2 g/dL (32.0-36.0); MEAN CORPUSCULAR VOLUME 87.7 fL (80.0-94.0); MEAN PLATELET VOLUME 9.3 fL (7.4-11.4); MONOCYTES # (AUTO) 0.5 10^3/uL (0.0-1.0); MONOCYTES % (AUTO) 6.9 %; NEUTROPHILS # (AUTO) 3.8 10^3/uL (1.5-6.6); NEUTROPHILS % (AUTO) 57.9 %; PLT - PLATELET COUNT 182 10^3/uL (130-450); RED BLOOD COUNT 4.78 10^6/uL (4.70-6.10); RED CELL DISTRIBUTION WIDTH 12.7 % (12.0-15.0); WHITE BLOOD COUNT 6.5 x10^3/uL (4.8-10.8)
[2018-12-30 10:07] LABS: ALBUMIN 4.1 g/dL (3.2-5.5); ALBUMIN/GLOBULIN RATIO 1.4 (1.0-2.2); ALKALINE PHOSPHATASE 50 IU/L (42-121); ALT ALANINE AMINOTRANSFERASE 40 IU/L (10-60); AST ASPARTATE AMINOTRANSFERASE 29 IU/L (10-42); BUN - BLOOD UREA NITROGEN 14 mg/dL (6-20); CALCIUM 9.7 mg/dL (8.5-10.3); CARBON DIOXIDE - CO2 25 mmol/L (21-32); CHLORIDE 107 mmol/L (101-111); CHOL/HDL RATIO 5.7 (<5.0); CHOLESTEROL 153 mg/dL; CREATININE 1.2 mg/dL (0.6-1.2); GFR - MDRD 61 (>89); GLUCOSE 117 mg/dL (70-100); HDL CHOLESTEROL 27 mg/dL; LDL CHOLESTEROL,CALCULATED 89 mg/dL; LDL/HDL RATIO 3.3 (<3.6); SODIUM 142 mmol/L (135-145); TOTAL PROTEIN 7.1 g/dL (6.7-8.2); VLDL CHOLESTEROL 37 mg/dL
[2018-12-30 10:43] LABS: THYROID STIMULATING HORMONE 1.16 uIU/mL (0.34-5.60)
[2018-12-30 10:46] LABS: FREE T4 (FREE THYROXINE) 0.99 ng/dL (0.58-1.64)
== END 2018-12-30 09:34 | disposition home or self-care (01) ==
LOC: LAB 09:33
PROVIDERS: ATTEND Family Medicine
DX: E03.9 Hypothyroidism, unspecified (principal); E78.5 Hyperlipidemia, unspecified; I10 Essential (primary) hypertension; K21.9 Gastro-esophageal reflux disease without esophagitis; N20.0 Calculus of kidney; G47.33 Obstructive sleep apnea (adult) (pediatric)
CPT/HCPCS: 36415; 80053; 80061; 83721; 84439; 84443; 84481; 85025

== ENCOUNTER 2019-05-06 14:03 | Emergency (ER) | payer MEDICARE ==
[2019-05-06 14:41] LABS: BASOPHILS % (AUTO) 0.4 %; EOSINOPHILS # (AUTO) 0.1 10^3/uL (0.0-0.7); EOSINOPHILS % (AUTO) 1.9 %; HGB - HEMOGLOBIN 14.5 g/dL (14.0-18.0); LYMPHOCYTES # (AUTO) 2.4 10^3/uL (1.5-3.5); LYMPHOCYTES % (AUTO) 32.6 %; MEAN CORPUSCULAR HEMOGLOBIN 30.9 pg (27.0-31.0); MEAN CORPUSCULAR HGB CONC 34.5 g/dL (32.0-36.0); MEAN CORPUSCULAR VOLUME 89.4 fL (80.0-94.0); MEAN PLATELET VOLUME 9.6 fL (7.4-11.4); MONOCYTES # (AUTO) 0.5 10^3/uL (0.0-1.0); MONOCYTES % (AUTO) 6.4 %; NEUTROPHILS # (AUTO) 4.2 10^3/uL (1.5-6.6); NEUTROPHILS % (AUTO) 58.3 %; PLT - PLATELET COUNT 198 10^3/uL (130-450); RED CELL DISTRIBUTION WIDTH 12.2 % (12.0-15.0); WHITE BLOOD COUNT 7.2 x10^3/uL (4.8-10.8)
--- NOTE | 2019-05-06 14:41 | ED Physician Documentation ---
History of Present Illness - Stated complaint Stated Complaint: BP - PCP REFERRED - Chief complaint Chief Complaint: Cardiac - History obtained from History obtained from: Patient - History of Present Illness Timing: Other (For the last 3 weeks he has had some headaches and higher than normal blood pressures despite taking labetalol 200 mg twice daily and losartan 100 mg daily. No recent changes in his blood pressure medicines. No chest pain. Some very mild shortness of breath. No pedal edema.) Review of Systems Constitutional: denies: Fever, Chills, Fatigue Eyes: denies: Loss of vision, Decreased vision, Photophobia Cardiac: denies: Chest pain / pressure, Palpitations, Pedal edema, Calf pain PD PAST MEDICAL HISTORY - Past Medical History Cardiovascular: Hypertension Respiratory: Sleep apnea, CPAP use Endocrine/Autoimmune: HyPOthyroidism GI: GERD, Hiatal hernia, Hepatitis : Benign prostate hypertrophy, Kidney stones, Other HEENT: Chronic hearing loss Psych: None Musculoskeletal: Osteoarthritis, Chronic back pain Derm: None - Past Surgical History Past Surgical History: Yes General: Colonoscopy HEENT: Tonsil/Adenoidectomy - Present Medications Home Medications: Ambulatory Orders Medication Instructions Recorded Confirmed Atorvastatin Calcium [Lipitor] 10 mg ORAL DAILY 12/20/12 02/04/17 Levothyroxine Sodium [Synthroid] 88 mcg ORAL DAILY 12/20/12 02/04/17 Eplerenone 25 mg PO DAILY 11/29/15 02/04/17 Labetalol [Trandate] 200 mg ORAL BID 11/29/15 02/04/17 Tamsulosin [Flomax] 0.4 mg PO DAILY 12/07/15 02/04/17 Calcium Carbonate [Tums (Calcium 1 - 2 tab.chew PO DAILY 08/02/16 02/04/17 Carbonate 500mg)] Oxycodone HCl/Acetaminophen 1 - 2 tab PO Q4H PRN #15 tablet 02/02/17 02/04/17 [Percocet 5-325 mg Tablet] amLODIPine [Norvasc] 10 mg PO DAILY #30 tablet 05/06/19 - Allergies Allergies/Adverse Reactions: Allergies Allergy/AdvReac Type Severity Reaction Status Date / Time No Known Drug Allergies Allergy Verified 05/06/19 14:12 - Social History Does the pt smoke?: Yes Smoking Status: Former smoker Does the pt drink ETOH?: Yes Does the pt have substance abuse?: No - Immunizations Immunizations are current?: Yes - POLST Patient has POLST: No PD ED PE NORMAL - Vitals Vital signs reviewed: Yes - General General: Alert and oriented X 3, No acute distress - HEENT HEENT: PERRL, EOMI - Neck Neck: Supple, no meningeal sign, No bony TTP - Cardiac Cardiac: RRR, No murmur - Respiratory Respiratory: No respiratory distress, Clear bilaterally - Abdomen Abdomen: Non tender - Derm Derm: Normal color, Warm and dry - Extremities Extremities: No calf tenderness / cord - Neuro Neuro: Alert and oriented X 3, Normal speech Results - Vitals Vitals: Vital Signs - 24 hr 05/06/19 05/06/19 05/06/19 14:12 14:50 15:06 Temperature 36.5 C Heart Rate 57 L 59 L 56 L Respiratory 16 16 17 Rate Blood Pressure 161/89 H 161/92 H 146/80 H O2 Saturation 99 97 98 05/06/19 15:15 Temperature Heart Rate 60 Respiratory 14 Rate Blood Pressure 146/80 H O2 Saturation 98 Oxygen O2 Source Room air - EKG (time done) 1444 Rate: Rate (enter#) (54) Rhythm: NSR [place]: Normal Intervals: Normal ME QRS: Normal Ischemia: Normal ST segments, Non specific changes Computer interpretation: Agree with computer - Labs Labs: Laboratory Tests 05/06/19 05/06/19 05/06/19 14:37 14:37 14:37 WBC 7.2 RBC 4.70 Hgb 14.5 Hct 42.0 MCV 89.4 MCH 30.9 MCHC 34.5 RDW 12.2 Plt Count 198 MPV 9.6 Neut # (Auto) 4.2 Lymph # (Auto) 2.4 [place] # (Auto) 0.5 Eos # (Auto) 0.1 Baso # (Auto) 0.0 Absolute Nucleated RBC 0.00 Nucleated RBC % 0.0 Sodium 141 Potassium 4.0 Chloride 108 Carbon Dioxide 25 Anion Gap 8.0 BUN 12 Creatinine 1.1 Estimated GFR (MDRD) 67 L Glucose 113 H Calcium 9.9 Total Bilirubin 0.5 AST 35 ALT 49 Alkaline Phosphatase 44 Troponin I High Sens 8.5 Total Protein 7.1 Albumin 4.2 Globulin 2.9 Albumin/Globulin Ratio 1.4 Lipase 33 PD MEDICAL DECISION MAKING - ED course ED course: 68-year-old gentleman with symptomatic uncontrolled hypertension, objectively without pertinent positive findings. We will add amlodipine to his current regiment pending PCP follow-up. Departure - Departure Disposition: 01 Home, Self Care Clinical Impression: Hypertension Qualifiers: Hypertension type: essential hypertension Qualified Code(s): I10 - Essential (primary) hypertension Condition: Good Record reviewed to determine appropriate education?: Yes Instructions: ED HTN Established Prescriptions: amLODIPine [Norvasc] 10 mg PO DAILY #30 tablet Comments: Continue your usual blood pressure medicine and you can add the amlodipine pending primary care follow-up. Discontinue it if your blood pressure goes low. Return for new or worsening symptoms. Discharge Date/Time: 05/06/19 15:14
[2019-05-06 14:58] LABS: ALBUMIN 4.2 g/dL (3.2-5.5); ALBUMIN/GLOBULIN RATIO 1.4 (1.0-2.2); BILIRUBIN,TOTAL 0.5 mg/dL (0.2-1.0); CALCIUM 9.9 mg/dL (8.5-10.3); CREATININE 1.1 mg/dL (0.6-1.2); TOTAL PROTEIN 7.1 g/dL (6.7-8.2)
[2019-05-06 15:06] VITALS: BP 146/80
== END 2019-05-06 15:14 | disposition home or self-care (01) ==
LOC: ED 14:03
DX: I10 Essential (primary) hypertension (principal); R51 Headache; Z87.891 Personal history of nicotine dependence
CPT/HCPCS: 36415; 80053; 83690; 84484; 85025; 93005; 99283; 99284

== ENCOUNTER 2019-06-11 14:09 | Outpatient (CLI) | payer MEDICARE ==
--- NOTE | 2019-06-12 10:32 | XRAY Report ---
Reason: SHORTNESS OF BREATH,OVERWT,OBSTRUCTIVE SLEEP APNEA Procedure Date: 06/11/2019 Accession Number: [id number] / [id number] Procedure: XR - Chest 2 View X-Ray CPT Code: 51304 Final Report FULL RESULT: EXAM: CHEST RADIOGRAPHY EXAM DATE: 06/11/2019 02:24 PM. CLINICAL HISTORY: Shortness of breath. Obstructive sleep apnea. COMPARISON: None. TECHNIQUE: 2 views. FINDINGS: Lungs/Pleura: Normal volumes. No focal infiltrate or bronchial wall thickening. No evidence of edema. No pleural effusion or pneumothorax. Mediastinum: Heart size is normal. The aorta is mildly tortuous. Other: Mild degenerative changes within the spine. IMPRESSION: No acute cardiopulmonary abnormality. [facility]
== END 2019-06-11 14:10 | disposition home or self-care (01) ==
LOC: DI 14:09
PROVIDERS: ATTEND Family Medicine
DX: R06.02 Shortness of breath (principal); E66.3 Overweight; G47.33 Obstructive sleep apnea (adult) (pediatric)
CPT/HCPCS: 71046

== ENCOUNTER 2019-07-07 14:32 | Outpatient (CLI) | payer MEDICARE ==
--- NOTE | 2019-07-08 14:33 | XRAY Report ---
Reason: RENAL CALCULUS Procedure Date: 07/07/2019 Accession Number: [id number] / [id number] Procedure: XR - Abdomen 1 View X-Ray CPT Code: 11573 Final Report FULL RESULT: EXAM: ABDOMEN RADIOGRAPHY EXAM DATE: 07/07/2019 03:00 PM. CLINICAL HISTORY: RENAL CALCULUS. COMPARISON: ABDOMEN 1 VIEW 11/19/2018 11:46 AM. TECHNIQUE: 1 view. FINDINGS: Bowel Gas Pattern: Within normal limits. No dilated loops. Other: Probable 1 mm lower pole right renal calculus, as before. No other radiopaque uroliths. Prostate brachytherapy seeds, as before. IMPRESSION: Probable 1 mm lower pole right renal calculus, as before. RADIA
== END 2019-07-07 14:33 | disposition home or self-care (01) ==
LOC: LAB 14:32
PROVIDERS: ATTEND Urology
DX: Z85.46 Personal history of malignant neoplasm of prostate (principal)
CPT/HCPCS: 36415; 74018; 84153

== ENCOUNTER 2019-07-17 14:34 | Outpatient (CLI) | payer MEDICARE | END 2019-07-17 14:35 | disposition home or self-care (01) | LOC: RT 14:34 | PROVIDERS: ATTEND Surgery | DX: Z01.818 Encounter for other preprocedural examination (principal); K40.90 Unilateral inguinal hernia, without obstruction or gangrene, not specified as recurrent | CPT/HCPCS: 93005 ==

== ENCOUNTER 2019-07-21 07:26 | Day surgery (SDC) | payer MEDICARE ==
[~2019-07-21 07:26] MED LIST: CEFAZOLIN SODIUM IN 0.9 % NACL 2 GM/100 ML BAG IV ONE
[2019-07-21] MEDS ORDERED: LACTATED RINGERS 1,000 ML IV ONE (07:56)
--- NOTE | 2019-07-21 08:43 | ANESTHESIA ---
Pre-Anesthesia VS, & Labs - Diagnosis L inguinal hernia, reccurrent - Procedure L inguinal hernia repair Vital Signs: Temp Pulse Resp BP Pulse Ox 36.5 C 57 L 16 120/92 H 98 07/21/19 07:52 07/21/19 07:52 07/21/19 07:52 07/21/19 07:52 07/21/19 07:52 Height 5 ft 10 in Weight (kg) 100 kg Body Mass Index 32.7 - NPO >8 hours Home Medications and Allergies Home Medications: Ambulatory Orders Losartan Potassium 100 mg PO DAILY 07/17/19 Multivitamin [Multiple Vitamins] 1 each PO DAILY 07/17/19 Atorvastatin Calcium [Lipitor] 10 mg ORAL QPM 12/20/12 Levothyroxine Sodium [Synthroid] 88 mcg ORAL DAILY 12/20/12 Eplerenone 25 mg PO DAILY 11/29/15 Labetalol [Trandate] 200 mg ORAL BID 11/29/15 Calcium Carbonate [Tums (Calcium Carbonate 500mg)] 1 tab.chew PO DAILY PRN 08/02/16 Losartan Potassium 100 mg PO DAILY 07/17/19 Multivitamin [Multiple Vitamins] 1 each PO DAILY 07/17/19 Allergies/Adverse Reactions: Allergies Allergy/AdvReac Type Severity Reaction Status Date / Time prednisone AdvReac all over Verified 07/17/19 14:41 aches and pains Anes History & Medical History - Anesthetic History Anesthesia Complications: reports: No previous complications Family history of Anesthesia Complications: Denies Family history of Malignant Hyperthermia: Denies - Medical History Cardiovascular: reports: Hypertension, High cholesterol Pulmonary: reports: Sleep apnea Gastrointestinal: reports: GERD, Hiatal hernia, Hepatitis Urinary: reports: Benign prostate hypertrophy, Kidney stones, Other Musculoskeletal: reports: Osteoarthritis, Chronic back pain Endocrine/Autoimmune: reports: HyPOthyroidism Skin: reports: None Smoking Status: Former smoker - Surgical History General: Colonoscopy Eyes Ears Nose Throat (EENT): Tonsil/Adenoidectomy, Other Urologic: Ureterolithotomy (stones), Prostatic surgery Orthopedic: Other Exam General: Alert, Oriented x3, Cooperative Dental: WNL Mouth Openin Fingerbreadth Neck Mobility: Normal Mallampati classification: II Thyromental Distance: 4-6 cm Respiratory: Lungs clear, Normal breath sounds, No respiratory distress Cardiovascular: Regular rate (meaghan, chronic) Neurological: Normal speech Mental/Cognitive Status: Alert/Oriented X3, Normal for patient Cognitive Status: Within normal limits Plan Anesthesia Type: General Consent for Procedure(s) Verified and Reviewed: Yes Code Status: Attempt Resuscitation ASA classification: 2-Mild systemic disease Is this case an emergency?: No
[2019-07-21] MEDS ORDERED: LIDOCAINE 1%-EPI 1:100000 20 ML MDV ONE (10:00)
[2019-07-21] MEDS ORDERED: ceFAZolin 1 GM VIAL ONE (10:01)
[2019-07-21] MEDS ORDERED: BUPIVACAINE 0.5% PF 10 ML VIAL ONE ×3 (10:01)
[2019-07-21] MEDS ORDERED: ceFAZolin 1 GM VIAL IR ONE (10:08)
[2019-07-21] MEDS ORDERED: LIDOCAINE 1%-EPI 1:100000 30 ML MDV SUBQ ONE (10:09)
[2019-07-21] MEDS ORDERED: BUPIVACAINE 0.5% PF 10 ML VIAL IM ONE (10:09)
[2019-07-21] MEDS ORDERED: PROPOFOL 200 MG/20 ML VIAL IVP ONE (10:13)
[2019-07-21] MEDS ORDERED: fentaNYL 100 MCG/2 ML VIAL IVP ONE (10:13)
[2019-07-21] MEDS ORDERED: PHENYLEPHRINE 10 MG/ML VIAL IV ONE (10:13)
[2019-07-21] MEDS ORDERED: GLYCOPYRROLATE 1 MG/5 ML VIAL IVP ONE (10:13)
[2019-07-21] MEDS ORDERED: ONDANSETRON 4 MG/2 ML VIAL IVP ONE (10:13)
[2019-07-21] MEDS ORDERED: KETOROLAC 30 MG/ML VIAL IVP ONE (10:13)
[2019-07-21] MEDS ORDERED: ACETAMINOPHEN 1,000 MG/100 ML 100 ML IV ONE (10:13)
[2019-07-21] MEDS ORDERED: SODIUM CHLORIDE 0.9% 10 ML ONE (10:19)
--- NOTE | 2019-07-21 11:06 | OPERATIVE REPORT ---
Operative Report - General Procedure Date: 07/21/19 Planned Procedure: Repair of recurrent left inguinal hernia Pre-Op Diagnosis: Recurrent left inguinal hernia Procedure Performed: Repair of recurrent left inguinal hernia Post Op Diagnosis: Same - Procedure Note Primary Surgeon: Christ Anesthesia Provider: SRIKANTH Whipple Anesthesia Technique: General LMA, Local, Regional block Pathology: None IV Fluids (mL): 300 Estimated Blood Loss (mL): 5 Findings: Recurrence of the hernia just lateral to the pubic tubercle. The existing mesh was not attached to the tubercle. Complications: None apparent - Other Other Information/Narrative: After obtaining informed consent, the patient is brought to the operating room placed in the supine position on the operating table. Following successful induction of general endotracheal anesthesia, appropriate padding of all bony prominences, and placement appropriate monitors, the left abdomen and groin and prepped and draped in the standard surgical fashion. A timeout was held per scope protocol. All elements of the surgical safety checklist were followed before, during, and after the procedure. We began the procedure by infiltrating a mixture of local anesthetics just medial to the anterior superior iliac spine on the left. We continued by infiltrating at the site of the prior left inguinal hernia repair. This incision was then repeated and carried down through the skin and subcutaneous tissue. Miroslava's fascia was opened revealing significant scarring in the fascia of the external oblique aponeurosis. Investigation revealed a recurrence just lateral to the pubic tubercle on the left side. The spermatic cord was carefully identified, surrounded with a Clifton drain, and retracted laterally. I was not able to identify the Ilioinguinal nerve. The recurrence was then surveyed closer. The mesh that had been placed at the prior repair was in place but no longer attached to the tubercle. I elected to repair this defect with a extra-large Bard mesh plug. This was dipped into Ancef solution and deployed into the defect. It was then tacked to the tubercle medially, scar Deep's ligament laterally, the transversalis fascia medially, and the existing mesh superior laterally. The wound was then checked for hemostasis. It was irrigated with warm Ancef containing solution and aspirated free of all fluid and particulate matter. The cord was then released and placed back in its anatomic position. The wound was checked once again for hemostasis. Miroslava's fascia was closed with running Vicryl suture. And Monocryl was placed in the skin. All sponge, needle, and instrument counts were correct at the conclusion of the case. The patient is allowed awaken from anesthesia without difficulty and taken to the postanesthesia care unit in good condition.
[2019-07-21] MEDS ORDERED: ONDANSETRON 4 MG/2 ML VIAL IVP PRN (11:09)
[2019-07-21] MEDS ORDERED: IBUPROFEN 600 MG TABLET PO PRN (11:09)
[2019-07-21] MEDS ORDERED: ACETAMINOPHEN 325 MG TABLET PO PRN (11:09)
[2019-07-21] MEDS ORDERED: oxyCODONE 5 MG TABLET PO PRN (11:09)
[2019-07-21 12:20] VITALS: BP 116/71
== END 2019-07-21 07:27 | disposition home or self-care (01) ==
LOC: SDS 07:26
PROVIDERS: ATTEND Surgery
PROC: 0YU60JZ Supplement Left Inguinal Region with Synthetic Substitute, Open Approach (ICD-10-PCS; principal; 2019-07-21 08:45)
DX: K40.91 Unilateral inguinal hernia, without obstruction or gangrene, recurrent (principal); K42.9 Umbilical hernia without obstruction or gangrene; G47.33 Obstructive sleep apnea (adult) (pediatric); I10 Essential (primary) hypertension; N40.0 Benign prostatic hyperplasia without lower urinary tract symptoms; C61 Malignant neoplasm of prostate; E66.3 Overweight; Z68.32 Body mass index [BMI] 32.0-32.9, adult; Z87.891 Personal history of nicotine dependence
CPT/HCPCS: 49520; C1781; J0131; J0690; J7120

== ENCOUNTER 2020-04-17 08:49 | Outpatient (CLI) | payer MEDICARE ==
[2020-04-17 09:10] LABS: BASOPHILS % (AUTO) 0.6 %; EOSINOPHILS # (AUTO) 0.1 10^3/uL (0.0-0.7); EOSINOPHILS % (AUTO) 1.7 %; HGB - HEMOGLOBIN 14.9 g/dL (14.0-18.0); LYMPHOCYTES # (AUTO) 2.6 10^3/uL (1.5-3.5); LYMPHOCYTES % (AUTO) 36.8 %; MEAN CORPUSCULAR HEMOGLOBIN 30.3 pg (27.0-31.0); MEAN CORPUSCULAR HGB CONC 34.9 g/dL (32.0-36.0); MEAN PLATELET VOLUME 9.5 fL (7.4-11.4); MONOCYTES # (AUTO) 0.4 10^3/uL (0.0-1.0); MONOCYTES % (AUTO) 5.9 %; NEUTROPHILS # (AUTO) 3.9 10^3/uL (1.5-6.6); NEUTROPHILS % (AUTO) 54.6 %; PLT - PLATELET COUNT 211 10^3/uL (130-450); RED BLOOD COUNT 4.91 10^6/uL (4.70-6.10); RED CELL DISTRIBUTION WIDTH 12.1 % (12.0-15.0); WHITE BLOOD COUNT 7.1 x10^3/uL (4.8-10.8)
[2020-04-17 09:46] LABS: ALBUMIN 4.1 g/dL (3.2-5.5); ALBUMIN/GLOBULIN RATIO 1.5 (1.0-2.2); ALKALINE PHOSPHATASE 46 IU/L (42-121); ALT ALANINE AMINOTRANSFERASE 54 IU/L (10-60); AST ASPARTATE AMINOTRANSFERASE 35 IU/L (10-42); BILIRUBIN,TOTAL 0.9 mg/dL (0.2-1.0); BUN - BLOOD UREA NITROGEN 17 mg/dL (6-20); CALCIUM 9.9 mg/dL (8.5-10.3); CARBON DIOXIDE - CO2 24 mmol/L (21-32); CHLORIDE 105 mmol/L (101-111); CHOL/HDL RATIO 5.2 (<5.0); CHOLESTEROL 166 mg/dL; CREATININE 1.3 mg/dL (0.6-1.2); GLUCOSE 128 mg/dL (70-100); HDL CHOLESTEROL 32 mg/dL; LDL CHOLESTEROL,CALCULATED 107 mg/dL; LDL/HDL RATIO 3.3 (<3.6); SODIUM 139 mmol/L (135-145); TOTAL PROTEIN 6.9 g/dL (6.7-8.2); VLDL CHOLESTEROL 27 mg/dL
[2020-04-17 14:15] LABS: HEMOGLOBIN A1c% 5.5 % (4.27-6.07)
== END 2020-04-17 08:50 | disposition home or self-care (01) ==
LOC: LAB 08:49
PROVIDERS: ATTEND Family Medicine
DX: M17.12 Unilateral primary osteoarthritis, left knee (principal); E66.3 Overweight; R73.9 Hyperglycemia, unspecified; B19.20 Unspecified viral hepatitis C without hepatic coma; E03.9 Hypothyroidism, unspecified; E78.5 Hyperlipidemia, unspecified; I10 Essential (primary) hypertension; Z85.46 Personal history of malignant neoplasm of prostate; G47.33 Obstructive sleep apnea (adult) (pediatric)
CPT/HCPCS: 36415; 80053; 80061; 83036; 83721; 84153; 84443; 85025

== ENCOUNTER 2020-12-07 08:50 | Outpatient (CLI) | payer MEDICARE | END 2020-12-07 08:51 | disposition home or self-care (01) | LOC: LAB 08:50 | PROVIDERS: ATTEND Urology | DX: Z85.46 Personal history of malignant neoplasm of prostate (principal) | CPT/HCPCS: 36415; 84153 ==

== ENCOUNTER 2020-12-07 08:55 | Outpatient (CLI) | payer MEDICARE ==
--- NOTE | 2020-12-07 09:34 | XRAY Report ---
PROCEDURE: Abdomen 1 View X-Ray INDICATIONS: HISTORY OF NEPHROLITHIASIS TECHNIQUE: 1 view of the abdomen were acquired. COMPARISON: FINDINGS: Surgical changes and devices: None. Bowel: No pneumoperitoneum. The bowel gas pattern is, with mild to moderate colonic obstipation. Soft tissues: No masses; visualized solid organ contours appear normal in size. No suspicious abdom inal calcifications. Bones: No suspicious bony abnormalities. IMPRESSION: Mild to moderate colonic obstipation within the abdomen and pelvis bilaterally. Reviewed by: Lazaro Buenrostro MD on 12/07/2020 9:32 AM PDT Approved by: Lazaro Buenrostro MD on 12/07/2020 9:32 AM PDT Station ID: [id number]
== END 2020-12-07 08:56 | disposition home or self-care (01) ==
LOC: DI 08:55
PROVIDERS: ATTEND Urology
DX: K59.00 Constipation, unspecified (principal); Z85.46 Personal history of malignant neoplasm of prostate
CPT/HCPCS: 36415; 84153

== ENCOUNTER 2021-01-13 10:17 | Outpatient (CLI) | payer MEDICARE ==
[2021-01-13 10:47] LABS: BASOPHILS # (AUTO) 0.1 10^3/uL (0.0-0.1); BASOPHILS % (AUTO) 0.7 %; EOSINOPHILS # (AUTO) 0.1 10^3/uL (0.0-0.7); EOSINOPHILS % (AUTO) 1.9 %; HCT - HEMATOCRIT 42.1 % (42.0-52.0); HGB - HEMOGLOBIN 14.5 g/dL (14.0-18.0); LYMPHOCYTES # (AUTO) 2.5 10^3/uL (1.5-3.5); LYMPHOCYTES % (AUTO) 32.9 %; MEAN CORPUSCULAR HEMOGLOBIN 30.4 pg (27.0-31.0); MEAN CORPUSCULAR HGB CONC 34.4 g/dL (32.0-36.0); MEAN CORPUSCULAR VOLUME 88.3 fL (80.0-94.0); MEAN PLATELET VOLUME 9.7 fL (7.4-11.4); MONOCYTES # (AUTO) 0.5 10^3/uL (0.0-1.0); MONOCYTES % (AUTO) 6.8 %; NEUTROPHILS # (AUTO) 4.3 10^3/uL (1.5-6.6); NEUTROPHILS % (AUTO) 57.6 %; PLT - PLATELET COUNT 215 10^3/uL (130-450); RED BLOOD COUNT 4.77 10^6/uL (4.70-6.10); RED CELL DISTRIBUTION WIDTH 12.1 % (12.0-15.0); WHITE BLOOD COUNT 7.5 x10^3/uL (4.8-10.8)
[2021-01-13 11:23] LABS: THYROID STIMULATING HORMONE 1.53 uIU/mL (0.34-5.60)
[2021-01-13 11:29] LABS: ALBUMIN 4.4 g/dL (3.2-5.5); ALBUMIN/GLOBULIN RATIO 1.7 (1.0-2.2); ALKALINE PHOSPHATASE 51 IU/L (42-121); ALT ALANINE AMINOTRANSFERASE 44 IU/L (10-60); AST ASPARTATE AMINOTRANSFERASE 30 IU/L (10-42); BILIRUBIN,TOTAL 1.1 mg/dL (0.2-1.0); BUN - BLOOD UREA NITROGEN 17 mg/dL (6-20); CALCIUM 9.9 mg/dL (8.5-10.3); CARBON DIOXIDE - CO2 28 mmol/L (21-32); CHLORIDE 106 mmol/L (101-111); CHOL/HDL RATIO 4.3 (<5.0); CHOLESTEROL 145 mg/dL; CREATININE 1.4 mg/dL (0.6-1.2); GFR - MDRD 50 (>89); GLUCOSE 122 mg/dL (70-100); HDL CHOLESTEROL 34 mg/dL; LDL CHOLESTEROL,CALCULATED 88 mg/dL; LDL/HDL RATIO 2.6 (<3.6); POTASSIUM 3.6 mmol/L (3.5-5.0); SODIUM 142 mmol/L (135-145); TRIGLYCERIDES 114 mg/dL; VLDL CHOLESTEROL 23 mg/dL
[2021-01-13 12:53] LABS: ESTIMATED AVERAGE GLUCOSE 105 mg/dL (70-100); HEMOGLOBIN A1c% 5.3 % (4.27-6.07)
== END 2021-01-13 10:18 | disposition home or self-care (01) ==
LOC: LAB 10:17
PROVIDERS: ATTEND Family Medicine
DX: E03.9 Hypothyroidism, unspecified (principal); R73.9 Hyperglycemia, unspecified; E78.5 Hyperlipidemia, unspecified; I10 Essential (primary) hypertension; Z85.46 Personal history of malignant neoplasm of prostate
CPT/HCPCS: 36415; 80053; 80061; 83036; 83721; 84153; 84443; 85025

== ENCOUNTER 2022-02-01 11:36 | Outpatient (CLI) | payer MEDICARE ==
--- NOTE | 2022-02-01 15:27 | XRAY Report ---
PROCEDURE: Abdomen 1 View X-Ray INDICATIONS: HISTORY OF NEPHROLITHIASIS TECHNIQUE: One view of the abdomen acquired. COMPARISON: 12/07/2020 FINDINGS: Surgical changes and devices: None. Bowel: Bowel gas pattern is normal. Soft tissues: 5 mm calcification projects over the inferior pole right kidney. Ill-defined 4 mm calci fication projects over the left kidney. Visualized solid organ contours appear normal in size. Bones: No suspicious bony lesions. IMPRESSION: Bilateral renal calcifications. Reviewed by: Gris Esteban MD on 02/01/2022 3:25 PM PDT Approved by: Gris Esteban MD on 02/01/2022 3:25 PM PDT Station ID: [id number]
== END 2022-02-01 11:37 | disposition home or self-care (01) ==
LOC: DI 11:36
PROVIDERS: ATTEND Urology
DX: N20.0 Calculus of kidney (principal); Z87.442 Personal history of urinary calculi

== ENCOUNTER 2022-02-03 10:47 | Outpatient (CLI) | payer MEDICARE | END 2022-02-03 10:48 | disposition home or self-care (01) | LOC: LAB 10:47 | PROVIDERS: ATTEND Urology | DX: Z85.46 Personal history of malignant neoplasm of prostate (principal) | CPT/HCPCS: 36415; 84153 ==

== ENCOUNTER 2022-02-28 11:12 | Outpatient (CLI) | payer MEDICARE ==
[2022-02-28 11:27] LABS: BASOPHILS # (AUTO) 0.1 10^3/uL (0.0-0.1); BASOPHILS % (AUTO) 0.6 %; EOSINOPHILS # (AUTO) 0.1 10^3/uL (0.0-0.7); HCT - HEMATOCRIT 43.5 % (42.0-52.0); HGB - HEMOGLOBIN 14.2 g/dL (14.0-18.0); LYMPHOCYTES % (AUTO) 33.7 %; MEAN CORPUSCULAR HEMOGLOBIN 28.5 pg (27.0-31.0); MEAN CORPUSCULAR HGB CONC 32.6 g/dL (32.0-36.0); MEAN CORPUSCULAR VOLUME 87.2 fL (80.0-94.0); MEAN PLATELET VOLUME 9.3 fL (7.4-11.4); MONOCYTES # (AUTO) 0.6 10^3/uL (0.0-1.0); MONOCYTES % (AUTO) 6.7 %; NEUTROPHILS # (AUTO) 5.1 10^3/uL (1.5-6.6); NEUTROPHILS % (AUTO) 57.8 %; PLT - PLATELET COUNT 220 10^3/uL (130-450); RED BLOOD COUNT 4.99 10^6/uL (4.70-6.10); RED CELL DISTRIBUTION WIDTH 12.4 % (12.0-15.0); WHITE BLOOD COUNT 8.8 x10^3/uL (4.8-10.8)
[2022-02-28 11:50] LABS: ALBUMIN 4.4 g/dL (3.2-5.5); ALBUMIN/GLOBULIN RATIO 1.6 (1.0-2.2); ALKALINE PHOSPHATASE 58 IU/L (42-121); ALT ALANINE AMINOTRANSFERASE 26 IU/L (10-60); AST ASPARTATE AMINOTRANSFERASE 22 IU/L (10-42); BILIRUBIN,TOTAL 1.3 mg/dL (0.2-1.0); BUN - BLOOD UREA NITROGEN 20 mg/dL (6-20); CALCIUM 10.1 mg/dL (8.5-10.3); CARBON DIOXIDE - CO2 27 mmol/L (21-32); CHLORIDE 106 mmol/L (101-111); CHOL/HDL RATIO 5.3 (<5.0); CHOLESTEROL 154 mg/dL; CREATININE 1.4 mg/dL (0.6-1.2); GFR - MDRD 50 (>89); GLUCOSE 124 mg/dL (70-100); HDL CHOLESTEROL 29 mg/dL; LDL CHOLESTEROL,CALCULATED 96 mg/dL; LDL/HDL RATIO 3.3 (<3.6); POTASSIUM 4.1 mmol/L (3.5-5.0); SODIUM 139 mmol/L (135-145); TOTAL PROTEIN 7.1 g/dL (6.7-8.2); TRIGLYCERIDES 145 mg/dL; VLDL CHOLESTEROL 29 mg/dL
[2022-02-28 11:57] LABS: THYROID STIMULATING HORMONE 1.3 uIU/mL (0.34-5.60)
[2022-02-28 12:58] LABS: ESTIMATED AVERAGE GLUCOSE 105 mg/dL (70-100); HEMOGLOBIN A1c% 5.3 % (4.27-6.07)
--- NOTE | 2022-02-28 18:58 | XRAY Report ---
PROCEDURE: Ankle 3 View RT INDICATIONS: OTHER INSTABILITY, RIGHT ANKLE TECHNIQUE: 3 views of the ankle were acquired. COMPARISON: No comparison. FINDINGS: Moderate tibiotalar degenerative changes characterized by joint space narrowing with marginal osteoph ytosis as well as subchondral sclerosis in the tibial plafond. Degenerative changes of the talocalcan eal and talonavicular joints. Achilles tendon insertional enthesophytes. Small plantar calcaneal enth esophyte also present. Soft tissue thickening about the heel. IMPRESSION: Findings which raise concern for both plantar fasciitis and/or Achilles tendinitis. Moderate tibiotalar osteoarthritic changes. Reviewed by: Christiano Griffith MD on 02/28/2022 6:57 PM PDT Approved by: Christiano Griffith MD on 02/28/2022 6:57 PM PDT Station ID: [id number]
--- NOTE | 2022-02-28 19:01 | XRAY Report ---
PROCEDURE: Foot 2 View RT INDICATIONS: FOOT HEEL PAIN TECHNIQUE: Two views of the foot were acquired. COMPARISON: None. FINDINGS/IMPRESSION: 1.Moderate hallux valgus deformity with mild to moderate 1st MTP osteoarthritis. 2.Mild hammertoe deformities with associated distal interphalangeal osteoarthritis in the 2nd through 5th digits. 3.No fracture or dislocation. 4.No acute soft tissue findings. Reviewed by: Christiano Griffith MD on 02/28/2022 6:59 PM PDT Approved by: Christiano Griffith MD on 02/28/2022 6:59 PM PDT Station ID: [id number]
== END 2022-02-28 11:13 | disposition home or self-care (01) ==
LOC: DI 11:12
PROVIDERS: ATTEND Family Medicine
DX: M20.11 Hallux valgus (acquired), right foot (principal); M19.071 Primary osteoarthritis, right ankle and foot; M20.41 Other hammer toe(s) (acquired), right foot; R93.6 Abnormal findings on diagnostic imaging of limbs; I10 Essential (primary) hypertension; R73.9 Hyperglycemia, unspecified; E03.9 Hypothyroidism, unspecified; E78.5 Hyperlipidemia, unspecified; K21.9 Gastro-esophageal reflux disease without esophagitis
CPT/HCPCS: 36415; 80053; 80061; 83036; 83721; 84443; 85025

== ENCOUNTER 2022-04-19 06:59 | Day surgery (SDC) | payer MEDICARE ==
[2022-04-19] MEDS ORDERED: LACTATED RINGERS 1,000 ML IV ONE ×2 (07:05→09:25)
--- NOTE | 2022-04-19 07:48 | ANESTHESIA ---
Pre-Anesthesia VS, & Labs - Diagnosis screening - Procedure colonoscopy Vital Signs: Temp Pulse Resp BP Pulse Ox O2 Flow Rate 36.2 C L 56 L 16 150/97 H 96 0 04/19/22 07:14 04/19/22 07:14 04/19/22 07:14 04/19/22 07:14 04/19/22 07:14 04/19/22 07:14 Height: 5 ft 10 in Weight (kg): 98.1 kg Body Mass Index: 31.0 BMI Classification: Obese - NPO >8 hours Home Medications and Allergies Atorvastatin Calcium [Lipitor] 10 mg ORAL QPM 12/20/12 Levothyroxine Sodium [Synthroid] 88 mcg ORAL DAILY 12/20/12 Eplerenone 25 mg PO DAILY 11/29/15 Labetalol [Trandate] 200 mg ORAL BID 11/29/15 Calcium Carbonate [Tums (Calcium Carbonate 500mg)] 1 tab.chew PO DAILY PRN 08/02/16 Losartan Potassium 100 mg PO DAILY 07/17/19 Multivitamin [Multiple Vitamins] 1 each PO DAILY 07/17/19 Allergies/Adverse Reactions: Allergies Allergy/AdvReac Type Severity Reaction Status Date / Time prednisone AdvReac all over Verified 04/18/22 12:56 aches and pains Anes History & Medical History - Anesthetic History Anesthesia Complications: reports: No previous complications Family history of Anesthesia Complications: Denies Family history of Malignant Hyperthermia: Denies - Medical History Cardiovascular: reports: Hypertension Pulmonary: reports: Sleep apnea Gastrointestinal: reports: GERD, Hiatal hernia, Hepatitis Urinary: reports: Benign prostate hypertrophy, Kidney stones, Other Musculoskeletal: reports: Osteoarthritis, Chronic back pain Endocrine/Autoimmune: reports: HyPOthyroidism Skin: reports: None Smoking Status: Former smoker - Surgical History General: reports: Colonoscopy Eyes Ears Nose Throat (EENT): reports: Tonsil/Adenoidectomy Urologic: reports: Prostatic surgery Exam General: Alert, Oriented x3, Cooperative Dental: WNL Mouth Openin Fingerbreadth Neck Mobility: Normal Mallampati classification: II Thyromental Distance: 4-6 cm Respiratory: Lungs clear Cardiovascular: Regular rate Plan Anesthesia Type: Total IV Consent for Procedure(s) Verified and Reviewed: Yes Code Status: Attempt Resuscitation ASA classification: 2-Mild systemic disease Is this case an emergency?: No
[2022-04-19] MEDS ORDERED: MIDAZOLAM 2 MG/2 ML VIAL ONE (08:56)
[2022-04-19] MEDS ORDERED: PROPOFOL 500 MG/50 ML 500 MG/50 ML VIAL ONE (08:57)
[2022-04-19 09:43] VITALS: BP 134/87
--- NOTE | 2022-04-19 13:01 | ANESTHESIA POST OP EVALUATION ---
Anesthesia Post Eval - Post Anesthesia Eval Vitals: Last Vital Signs Temp 36.6 C 04/19/22 09:25 Pulse 62 04/19/22 09:42 Resp 16 04/19/22 09:42 BP 134/87 H 04/19/22 09:42 Pulse Ox 97 04/19/22 09:42 O2 Flow Rate 0 04/19/22 07:14 CV Function Including HR & BP: Stable Pain Control: Satisfactory Nausea & Vomiting: Negative Mental Status: Baseline Respiratory Status: Airway Patent Hydration Status: Satisfactory Anesthesia Complications: None
[2022-04-19] MEDS ORDERED: TRIAMCIN/MOXIFLOX OPHTHALMIC 0.6 ML VIAL IO ONE (14:42)
[2022-04-19] MEDS ORDERED: VANCOMYCIN OPHTH (TOPICAL) 10 MG/ML SYRINGE ONE (14:43)
== END 2022-04-19 07:00 | disposition home or self-care (01) ==
LOC: SDS 06:59
PROVIDERS: ATTEND Surgery
PROC: 0DBH8ZZ Excision of Cecum, Via Natural or Artificial Opening Endoscopic (ICD-10-PCS; principal; 2022-04-19 08:15)
DX: Z12.11 Encounter for screening for malignant neoplasm of colon (principal); D12.0 Benign neoplasm of cecum; K57.30 Diverticulosis of large intestine without perforation or abscess without bleeding; K64.8 Other hemorrhoids; G47.33 Obstructive sleep apnea (adult) (pediatric); E66.9 Obesity, unspecified; Z68.31 Body mass index [BMI] 31.0-31.9, adult; Z87.891 Personal history of nicotine dependence
CPT/HCPCS: 45385; J7120

== ENCOUNTER 2022-11-23 08:00 | Outpatient (CLI) | payer MEDICARE ==
[2022-11-23 15:56] LABS: BILIRUBIN,URINE NEGATIVE (NEGATIVE); GLUCOSE, URINE (UA) NEGATIVE (NEGATIVE); KETONES,URINE (UA) NEGATIVE (NEGATIVE); LEUKOCYTE ESTERASE, URINE NEGATIVE (NEGATIVE); NITRITE,URINE NEGATIVE (NEGATIVE); OCCULT BLOOD,URINE NEGATIVE (NEGATIVE); PROTEIN,URINE NEGATIVE (NEGATIVE); UROBILINOGEN,URINE 0.2 (NORMAL) E.U./dL (NORMAL)
[2022-11-23 15:57] LABS: CLARITY,URINE CLEAR (CLEAR)
[2022-11-23 16:18] LABS: BACTERIA,URINE None Seen /HPF (None Seen); CRYSTALS,URINE 3-5 Calcium Oxalate /LPF; RBC,URINE 0-5 /HPF (0-5); SQUAMOUS EPITHELIAL CELL,UR NONE SEEN (<= Few); WBC,URINE 0-3 /HPF (0-3)
== END 2022-11-23 23:59 | disposition home or self-care (01) ==
LOC: LAB 08:00
PROVIDERS: ATTEND Urology
DX: Z85.46 Personal history of malignant neoplasm of prostate (principal)
CPT/HCPCS: 81001; 87086

== ENCOUNTER 2023-02-22 08:00 | Outpatient (CLI) | payer MEDICARE ==
--- NOTE | 2023-02-22 16:41 | XRAY Report ---
PROCEDURE: Abdomen 1 View (KUB) INDICATIONS: HISTORY KIDNEY STONES TECHNIQUE: One view of the abdomen is performed. COMPARISON: 02/01/2022 FINDINGS: Bowel gas pattern is within normal limits. 10 mm calcification projects over the right kidney. Osseou s structures are grossly unremarkable. IMPRESSION: Right renal calcification. Reviewed by: Gris Esteban MD on 02/22/2023 4:39 PM PDT Approved by: Gris Esteban MD on 02/22/2023 4:39 PM PDT Station ID: [id number]
== END 2023-02-22 23:59 | disposition home or self-care (01) ==
LOC: DI.WOS 08:00
PROVIDERS: ATTEND Urology
DX: N20.0 Calculus of kidney (principal)

== ENCOUNTER 2023-03-12 11:49 | Outpatient (CLI) | payer MEDICARE | END 2023-03-12 11:50 | disposition home or self-care (01) | LOC: LAB 11:49 | PROVIDERS: ATTEND Urology | DX: C61 Malignant neoplasm of prostate (principal) | CPT/HCPCS: 36415; 84153 ==

== ENCOUNTER 2023-04-17 13:55 | Outpatient (CLI) | payer MEDICARE ==
[2023-04-17 14:07] LABS: BASOPHILS # (AUTO) 0.1 10^3/uL (0.0-0.1); BASOPHILS % (AUTO) 0.7 %; EOSINOPHILS # (AUTO) 0.1 10^3/uL (0.0-0.7); EOSINOPHILS % (AUTO) 1.3 %; HGB - HEMOGLOBIN 13.8 g/dL (14.0-18.0); LYMPHOCYTES # (AUTO) 2.5 10^3/uL (1.5-3.5); LYMPHOCYTES % (AUTO) 33.3 %; MEAN CORPUSCULAR HEMOGLOBIN 29.2 pg (27.0-31.0); MEAN CORPUSCULAR HGB CONC 33.7 g/dL (32.0-36.0); MEAN CORPUSCULAR VOLUME 86.7 fL (80.0-94.0); MEAN PLATELET VOLUME 9.6 fL (7.4-11.4); MONOCYTES # (AUTO) 0.5 10^3/uL (0.0-1.0); MONOCYTES % (AUTO) 6.1 %; NEUTROPHILS # (AUTO) 4.4 10^3/uL (1.5-6.6); NEUTROPHILS % (AUTO) 58.3 %; PLT - PLATELET COUNT 192 10^3/uL (130-450); RED BLOOD COUNT 4.73 10^6/uL (4.70-6.10); RED CELL DISTRIBUTION WIDTH 12.6 % (12.0-15.0); WHITE BLOOD COUNT 7.5 x10^3/uL (4.8-10.8)
[2023-04-17 14:26] LABS: ALBUMIN 4.2 g/dL (3.2-5.5); ALBUMIN/GLOBULIN RATIO 2.2 (1.0-2.2); ALKALINE PHOSPHATASE 62 IU/L (42-121); ALT ALANINE AMINOTRANSFERASE 26 IU/L (10-60); AST ASPARTATE AMINOTRANSFERASE 19 IU/L (10-42); BILIRUBIN,TOTAL 0.6 mg/dL (0.2-1.0); BUN - BLOOD UREA NITROGEN 18 mg/dL (6-20); CALCIUM 9.8 mg/dL (8.5-10.3); CARBON DIOXIDE - CO2 28 mmol/L (21-32); CHLORIDE 108 mmol/L (101-111); CHOL/HDL RATIO 4.7 (<5.0); CHOLESTEROL 137 mg/dL; CREATININE 1.4 mg/dL (0.6-1.3); GFR - MDRD 50 (>89); GLUCOSE 128 mg/dL (74-104); HDL CHOLESTEROL 29 mg/dL; LDL CHOLESTEROL,CALCULATED 76 mg/dL; LDL/HDL RATIO 2.6 (<3.6); POTASSIUM 3.9 mmol/L (3.5-4.5); SODIUM 140 mmol/L (135-145); TOTAL PROTEIN 6.1 g/dL (6.4-8.9); TRIGLYCERIDES 162 mg/dL (48-352); VLDL CHOLESTEROL 32 mg/dL
[2023-04-17 14:41] LABS: THYROID STIMULATING HORMONE 1.92 uIU/mL (0.34-5.60)
== END 2023-04-17 13:56 | disposition home or self-care (01) ==
LOC: LAB 13:55
PROVIDERS: ATTEND Family Medicine
DX: I10 Essential (primary) hypertension (principal); G97.82 Other postprocedural complications and disorders of nervous system; M17.12 Unilateral primary osteoarthritis, left knee; E03.9 Hypothyroidism, unspecified; E78.5 Hyperlipidemia, unspecified; K21.9 Gastro-esophageal reflux disease without esophagitis; Z85.46 Personal history of malignant neoplasm of prostate
CPT/HCPCS: 36415; 80053; 80061; 83721; 84153; 84443; 85025

== ENCOUNTER 2023-08-13 07:13 | Day surgery (SDC) | payer MEDICARE ==
[~2023-08-13 07:13] MED LIST changes: -CEFAZOLIN SODIUM IN 0.9 % NACL 2 GM/100 ML BAG IV ONE; +ceFAZolin 2 GM VIAL ONE
[2023-08-13] MEDS: LACTATED RINGERS 1,000 ML IV ONE ×3 (07:34→09:41)
[2023-08-13] MEDS ORDERED: fentaNYL 100 MCG/2 ML VIAL ONE (08:27)
[2023-08-13] MEDS ORDERED: MIDAZOLAM 2 MG/2 ML VIAL ONE (08:27)
--- NOTE | 2023-08-13 08:54 | ANESTHESIA ---
Pre-Anesthesia VS, & Labs - Diagnosis R kidney stone - Procedure R ESWL Height: 5 ft 11 in Weight (kg): 103 kg Body Mass Index: 31.6 BMI Classification: Obese - NPO >8 hours Home Medications and Allergies Home Medications: Ambulatory Orders amLODIPine [Norvasc] 2.5 mg PO DAILY 08/03/23 Atorvastatin Calcium [Lipitor] 10 mg ORAL QPM 12/20/12 Levothyroxine Sodium [Synthroid] 88 mcg ORAL DAILY 12/20/12 Eplerenone 25 mg PO DAILY 11/29/15 Labetalol [Trandate] 200 mg ORAL BID 11/29/15 Losartan Potassium 100 mg PO DAILY 07/17/19 amLODIPine [Norvasc] 2.5 mg PO DAILY 08/03/23 Allergies/Adverse Reactions: Allergies Allergy/AdvReac Type Severity Reaction Status Date / Time prednisone AdvReac all over Verified 08/13/23 07:29 aches and pains Anes History & Medical History - Anesthetic History Anesthesia Complications: reports: No previous complications Family history of Anesthesia Complications: Denies Family history of Malignant Hyperthermia: Denies - Medical History Cardiovascular: reports: Hypertension, High cholesterol Pulmonary: reports: Sleep apnea Gastrointestinal: reports: GERD, Hiatal hernia, Hepatitis Urinary: reports: Benign prostate hypertrophy, Kidney stones, Other Musculoskeletal: reports: None Endocrine/Autoimmune: reports: HyPOthyroidism Skin: reports: None Smoking Status: Former smoker Psychosocial: reports: Other (hx of) History of Cancer?: No - Surgical History General: reports: Colonoscopy Eyes Ears Nose Throat (EENT): reports: Tonsil/Adenoidectomy Urologic: reports: Ureterolithotomy (stones), Prostatic surgery Exam General: Alert, Oriented x3, Cooperative Dental: Other (missing multiple front upper teeth. awaiting implants) Mouth Openin Fingerbreadth Neck Mobility: Normal Mallampati classification: II Respiratory: Lungs clear Cardiovascular: Regular rate Plan Anesthesia Type: General Consent for Procedure(s) Verified and Reviewed: Yes Code Status: Attempt Resuscitation ASA classification: 3-Severe systemic disease Is this case an emergency?: No
[2023-08-13] MEDS ORDERED: HYDROmorphone 0.5 MG/0.5 ML SYRINGE IVP PRN (08:55)
[2023-08-13] MEDS ORDERED: fentaNYL 100 MCG/2 ML VIAL IVP PRN (08:55)
[2023-08-13] MEDS ORDERED: MORPHINE 2 MG/ML CARPUJECT IVP PRN (08:55)
[2023-08-13] MEDS ORDERED: METOCLOPRAMIDE 10 MG/2 ML VIAL IVP PRN (08:55)
[2023-08-13] MEDS ORDERED: NALOXONE 0.4 MG/ML VIAL IVP PRN (08:55)
[2023-08-13] MEDS ORDERED: ePHEDrine 50 MG/ML VIAL IVP PRN (08:55)
[2023-08-13] MEDS ORDERED: ATROPINE ABBOJECT 1 MG/10 ML SYRINGE IVP PRN (08:55)
[2023-08-13] MEDS ORDERED: ONDANSETRON 4 MG/2 ML VIAL IVP PRN ×2 (08:55→09:33)
[2023-08-13] MEDS ORDERED: LACTATED RINGERS 1,000 ML IV SCH (09:00)
[2023-08-13] MEDS ORDERED: ePHEDrine 50 MG/ML VIAL IVP ONE (09:04)
[2023-08-13] MEDS ORDERED: PROPOFOL 200 MG/20 ML VIAL IVP ONE (09:04)
[2023-08-13] MEDS ORDERED: LIDOCAINE-PF 2% 10 ML AMP SUBQ ONE (09:04)
[2023-08-13] MEDS ORDERED: ONDANSETRON 4 MG/2 ML VIAL ONE (09:04)
[2023-08-13] MEDS ORDERED: HYDROcod/ACETAM 5/325 MG TABLET PO PRN (09:33)
--- NOTE | 2023-08-13 09:38 | Discharge Plan ---
Discharge Plan Problem Reviewed?: Yes Disposition: Home, Self Care Condition: Good Prescriptions: Docusate Sodium 100Mg Capsule [Colace 100Mg Capsule] 100 mg PO DAILY #7 cap HYDROcod/ACETAM 5/325 [[place] 5/325] 1 tab PO Q4H PRN #10 tablet PRN Reason: Pain Diet: Regular Activity Restrictions: No Restrictions Shower Restrictions: No Driving Restrictions: No Instruction Topics: Lithotripsy Shock Wave Additional Instructions or Follow Up instructions: You will be contacted for follow-up in roughly [address] Lobo No Smoking: If you smoke, Please STOP! Call for help. Follow-up with: Bi Moncada MD [Primary Care Provider] -
--- NOTE | 2023-08-13 09:41 | OPERATIVE REPORT ---
Operative Report - General Procedure Date: 08/13/23 Planned Procedure: Right extracorporeal shockwave lithotripsy Pre-Op Diagnosis: Right renal stone Procedure Performed: Right extracorporeal shockwave lithotripsy Post Op Diagnosis: Right renal stone - Procedure Note Primary Surgeon: Yamil Anesthesia Provider: SRIKANTH Daugherty Anesthesia Technique: General LMA Findings: Right renal stone 9mm in size, moderate dissolution Complications: none - Other Other Information/Narrative: After informed consent was obtained the patient was brought to the OR and laid in the supine position. The patient was anesthetized per anesthesia protocols and prepped in the usual fashion. A formal timeout was performed reconfirming the patient, procedure and laterality. The shockwave generator was placed against his right flank and fluoroscopy was used to identify a 9 mm radiopaque stone in the right kidney. Shocks were sent at a rate of 1 Hz for the first few 100 shocks and then increase to 1.5 Hz for the remaining shocks until we reached 2500. The stone had moderate dissolution. This concluded the procedure and the patient tolerated the procedure well. He was brought to PACU without further incident. He will follow-up in 6 weeks time with an x-ray
[2023-08-13 10:18] VITALS: O2SAT 95
[2023-08-13 10:29] VITALS: BP 130/81
--- NOTE | 2023-08-13 10:33 | ANESTHESIA POST OP EVALUATION ---
Anesthesia Post Eval - Post Anesthesia Eval Vitals: Last Vital Signs Temp 37 C 08/13/23 10:23 Pulse 61 08/13/23 10:23 Resp 13 08/13/23 10:23 BP 130/81 H 08/13/23 10:23 Pulse Ox 95 08/13/23 10:23 O2 Flow Rate CV Function Including HR & BP: Stable Pain Control: Satisfactory Nausea & Vomiting: Negative Mental Status: Baseline Respiratory Status: Airway Patent Hydration Status: Satisfactory Anesthesia Complications: None
== END 2023-08-13 07:14 | disposition home or self-care (01) ==
LOC: SDS 07:13
PROVIDERS: ATTEND Urology
DX: N20.0 Calculus of kidney (principal); I10 Essential (primary) hypertension; G47.30 Sleep apnea, unspecified; Z87.891 Personal history of nicotine dependence
CPT/HCPCS: 50590; J7120

== ENCOUNTER 2023-09-25 14:26 | Outpatient (CLI) | payer MEDICARE ==
--- NOTE | 2023-09-26 00:47 | XRAY Report ---
PROCEDURE: Abdomen 1 V INDICATIONS: KIDEY STONES TECHNIQUE: 1 view of the abdomen were acquired. COMPARISON: 02/22/2023 FINDINGS: Surgical changes and devices: None. Bowel: No pneumoperitoneum. The bowel gas pattern is normal. Stool load within normal limits. Soft tissues: Stippled calcifications lower pole the right kidney is increased in the interval. Other jones, no Suspicious abdominal calcifications. ] Brachytherapy seeds noted in the prostate Bones: No suspicious bony abnormalities. IMPRESSION: Increased stippled calcification in the lower pole right kidney Reviewed by: Dewayne Crenshaw MD on 09/25/2023 11:46 PM AKDT Approved by: Dewayne Crenshaw MD on 09/25/2023 11:46 PM AKDT Station ID: [id number]
== END 2023-09-25 14:27 | disposition home or self-care (01) ==
LOC: DI 14:26
PROVIDERS: ATTEND Urology
DX: N20.0 Calculus of kidney (principal)

== ENCOUNTER 2023-12-12 20:15 | Emergency (ER) | payer MEDICARE ==
[2023-12-12 20:55] LABS: BASOPHILS # (AUTO) 0.1 10^3/uL (0.0-0.1); BASOPHILS % (AUTO) 0.7 %; EOSINOPHILS # (AUTO) 0.2 10^3/uL (0.0-0.7); EOSINOPHILS % (AUTO) 1.8 %; HCT - HEMATOCRIT 40.2 % (42.0-52.0); LYMPHOCYTES % (AUTO) 40.4 %; MEAN CORPUSCULAR HGB CONC 34.8 g/dL (32.0-36.0); MEAN CORPUSCULAR VOLUME 86.1 fL (80.0-94.0); MEAN PLATELET VOLUME 9.4 fL (7.4-11.4); MONOCYTES # (AUTO) 0.7 10^3/uL (0.0-1.0); MONOCYTES % (AUTO) 7.5 %; NEUTROPHILS # (AUTO) 4.8 10^3/uL (1.5-6.6); NEUTROPHILS % (AUTO) 49.4 %; PLT - PLATELET COUNT 192 10^3/uL (130-450); RED BLOOD COUNT 4.67 10^6/uL (4.70-6.10); RED CELL DISTRIBUTION WIDTH 12.8 % (12.0-15.0); WHITE BLOOD COUNT 9.8 x10^3/uL (4.8-10.8)
[2023-12-12 21:11] LABS: ALBUMIN 4.6 g/dL (3.2-5.5); ALBUMIN/GLOBULIN RATIO 2.1 (1.0-2.2); BILIRUBIN,TOTAL 0.8 mg/dL (0.2-1.0); CALCIUM 10.5 mg/dL (8.5-10.3); CREATININE 1.7 mg/dL (0.6-1.3); POTASSIUM 3.9 mmol/L (3.5-4.5); TOTAL PROTEIN 6.8 g/dL (6.4-8.9)
[2023-12-12] MEDS: MECLIZINE 12.5 MG TABLET PO STA (22:29)
--- NOTE | 2023-12-12 22:36 | CT Report ---
PROCEDURE: Head WO INDICATIONS: headache, vertigo x 3 days TECHNIQUE: Noncontrast 4.5 mm thick angled axial sections acquired from the foramen magnum to the vertex. For r adiation dose reduction, the following was used: automated exposure control, adjustment of mA and/or kV according to patient size. COMPARISON: None. FINDINGS: Image quality: Excellent. CSF spaces: Basal cisterns are patent. No extra-axial fluid collections. Ventricles are normal in size and shape. Brain: No midline shift. No intracranial masses or hemorrhage. Ugarte-white matter interface is norm al. Skull and face: Calvarium and visualized facial bones are intact, without suspicious lesions. Sinuses: Visualized sinuses and mastoids are clear. Indications this is seen in the maxillary sinus es bilaterally. Postsurgical changes are seen in the paranasal sinuses. Mastoid air cells are clear. IMPRESSION: No acute intracranial pathology. Reviewed by: Troy Perez MD on 12/12/2023 10:35 PM PDT Approved by: Troy Perez MD on 12/12/2023 10:35 PM PDT Station ID: [id number]
--- NOTE | 2023-12-12 22:39 | ED Physician Documentation ---
History of Present Illness - Stated complaint Stated Complaint: HIGH BP - Chief complaint Chief Complaint: General - History obtained from History obtained from: Patient - Additonal information Additional information: 73-year-old male with history of hypertension presents by private vehicle from home for dizziness and elevated blood pressure readings over the last 2 days. Patient states he has a room spinning sensation anytime he lays his head back. He states that his blood pressure is normally 130s to 140s systolic, but over the last day or 2 it has been as high as 1 70-1 80 systolic. Patient states that he normally does not measure his blood pressure when he is feeling well. He states that the last time he had vertigo like this it was related to high blood pressure. At that time he was started on a new blood pressure medication and has not had any issues until recently. Denies numbness, tingling, unilateral weakness, other complaints. Reports mild low-grade headache as well. Review of Systems Constitutional: denies: Fever, Chills Cardiac: denies: Chest pain / pressure, Palpitations, Calf pain Respiratory: denies: Dyspnea, Cough, Wheezing GI: denies: Abdominal Pain, Nausea, Vomiting, Constipation, Diarrhea Neurologic: reports: Headache. denies: Generalized weakness, Focal weakness, Numbness, Difficulty speaking, Near syncope, Syncope, Seizure, Confused PD PAST MEDICAL HISTORY - Past Medical History Past Medical History: Yes Cardiovascular: Hypertension, High cholesterol Respiratory: Sleep apnea Neuro: None Endocrine/Autoimmune: HyPOthyroidism GI: GERD, Hiatal hernia, Hepatitis : Benign prostate hypertrophy, Kidney stones, Other HEENT: Chronic hearing loss Psych: None Musculoskeletal: None Derm: None - Past Surgical History Past Surgical History: Yes General: Colonoscopy HEENT: Tonsil/Adenoidectomy - Present Medications Home Medications: Ambulatory Orders Medication Instructions Recorded Confirmed Atorvastatin Calcium [Lipitor] 10 mg ORAL QPM 12/20/12 08/03/23 Levothyroxine Sodium [Synthroid] 88 mcg ORAL DAILY 12/20/12 08/03/23 Eplerenone 25 mg PO DAILY 11/29/15 08/03/23 Labetalol [Trandate] 200 mg ORAL BID 11/29/15 08/03/23 Losartan Potassium 100 mg PO DAILY 07/17/19 08/03/23 amLODIPine [Norvasc] 2.5 mg PO DAILY 08/03/23 08/03/23 - Allergies Allergies/Adverse Reactions: Allergies Allergy/AdvReac Type Severity Reaction Status Date / Time prednisone AdvReac all over Verified 12/12/23 20:28 aches and pains - Social History Does the pt smoke?: Yes Smoking Status: Current every day smoker Does the pt drink ETOH?: Yes Does the pt have substance abuse?: No - Immunizations Immunizations are current?: Yes - POLST Patient has POLST: No PD ED PE NORMAL - Vitals Vital signs reviewed: Yes - General General: Alert and oriented X 3, No acute distress, Well developed/nourished - HEENT HEENT: Atraumatic, PERRL, EOMI, Ears normal, Moist mucous membranes - Neck Neck: Supple, no meningeal sign - Cardiac Cardiac: RRR, Strong equal pulses - Respiratory Respiratory: No respiratory distress, Clear bilaterally - Derm Derm: Normal color, Warm and dry, No rash - Extremities Extremities: No deformity, No tenderness to palpate, Normal ROM s pain - Neuro Neuro: Alert and oriented X 3, director trial 2-12 intact, No motor deficit, No sensory deficit, Normal speech - Psych Psych: Normal mood, Normal affect Results - Vitals Vitals: Vital Signs - 24 hr 12/12/23 12/12/23 12/12/23 20:21 22:09 23:01 Temperature 36.7 C Heart Rate 60 56 L Respiratory 16 16 16 Rate Blood Pressure 178/99 H 151/74 H O2 Saturation 97 98 12/12/23 23:36 Temperature Heart Rate Respiratory Rate Blood Pressure 152/70 H O2 Saturation Oxygen O2 Source Room air - Labs Labs: Laboratory Tests 12/12/23 12/12/23 20:50 20:50 WBC 9.8 RBC 4.67 L Hgb 14.0 Hct 40.2 L MCV 86.1 MCH 30.0 MCHC 34.8 RDW 12.8 Plt Count 192 MPV 9.4 Neut # (Auto) 4.8 Lymph # (Auto) 4.0 H Hart # (Auto) 0.7 Eos # (Auto) 0.2 Baso # (Auto) 0.1 Absolute Nucleated RBC 0.00 Nucleated RBC % 0.0 Sodium 138 Potassium 3.9 Chloride 104 Carbon Dioxide 28 Anion Gap 6.0 BUN 26 H Creatinine 1.7 H Estimated GFR (MDRD) 40 L Glucose 112 H Calcium 10.5 H Total Bilirubin 0.8 AST 20 ALT 32 Alkaline Phosphatase 60 Total Protein 6.8 Albumin 4.6 Globulin 2.2 Albumin/Globulin Ratio 2.1 PD Medical Decision Making - ED course Complexity details: reviewed results, re-evaluated patient ED course: Well-appearing patient with elevated blood pressure readings at home. Associated vertigo when laying his head back. Patient has no ataxia on exam, he is ambulatory without any difficulty, no focal neurologic deficits noted. Patient is convinced that when his blood pressure is treated his symptoms will resolve. Laboratory work reviewed, creatinine 1.7, which is more or less at patient's baseline. CT of the brain negative for acute findings. Patient reports im provement with meclizine, blood pressure 151 systolic without any other medications given. Patient informed of his creatinine results, he states that he has never been told about kidney disease and his regular doctor has never mentioned kidney function to him before. Patient was advised to follow-up with his primary care doctor about this finding, it is possible that better blood pressure control will help to prevent any worsening kidney function. Offered meclizine prescription, patient declined. Amlodipine dosing adjustments discussed with patient at bedside. Departure - Departure Disposition: , Self Care Clinical Impression: Vertigo, Hypertension, Elevated serum creatinine Condition: Stable Instructions: ED Vertigo Unspecified Comments: Your blood pressure today improved while you are in the emergency department, but it is still slightly elevated. I recommend increasing your amlodipine from 2.5 mg daily to 5 mg daily. If you notice a blood pressure still elevated you can increase this all the way up to 10 mg daily. Of note, your creatinine, or kidney function is elevated today. Based on previous laboratory results it is always elevated, and not significantly higher today than usual. I do recommend that you follow-up with your primary care doctor about your kidney function. Make sure that you control your blood pressures at home. Forms: PCP List Discharge Date/Time: 12/12/23 23:36
[2023-12-12 23:02] VITALS: O2SAT 98
[2023-12-12 23:43] VITALS: BP 152/70
== END 2023-12-12 23:36 | disposition home or self-care (01) ==
LOC: ED 20:15
DX: I10 Essential (primary) hypertension (principal); R42 Dizziness and giddiness; R94.4 Abnormal results of kidney function studies; E78.00 Pure hypercholesterolemia, unspecified; E03.9 Hypothyroidism, unspecified; F17.200 Nicotine dependence, unspecified, uncomplicated; Z79.899 Other long term (current) drug therapy
CPT/HCPCS: 36415; 70450; 80053; 85025; 93005; 99284; A9270